=== PATIENT | female | born 1945 | race Caucasian/White ===

== ENCOUNTER 2019-10-06 06:03 | Inpatient (IN) | payer OTHER, SELFPAY ==
[2019-09-23 13:46] VITALS: BMI 26.0
[2019-10-06] VITALS (24 sets, daily range): BP systolic 111–168; BP diastolic 56–96; PULSE 68–95; RESP 8–18; TEMP 36.1–37.1; O2SAT 89–99; BMI 25.7
--- NOTE | 2019-10-06 | DI.RAD.S_ITS ---
PROCEDURE: XR CERVICAL SPINE 2V OR 3V INDICATIONS: ACDF TECHNIQUE: 2 view(s) of the cervical spine were acquired. COMPARISON: None. FINDINGS: Bones: No fractures or dislocations to the T1 level. Normal alignment has been established by anterior fusion plating from C3-C7, with interbody disc prosthesis placement at C3-4, C4-5, C5-6. At C6-C7-1 bone graft or disc prosthesis appears present. The lateral masses of C1 appear intact on the odontoid view. No suspicious bony lesions. Soft tissues: No prevertebral soft tissue swelling. IMPRESSION: Normal alignment established after anterior fusion plating and interbody disc prosthesis C3-C6/possible C6-C7 bone graft or disc prosthesis placement. Dictated by: Julio César Villalba M.D. on 10/06/2019 at 11:30 Approved by: Julio César Villalba M.D. on 10/06/2019 at 11:32
[2019-10-06] MEDS: CLINDAMYCIN 600 MG/50 ML PIGGYBACK 50 MG IV ×3 (07:55→23:59)
--- NOTE | 2019-10-06 08:06 | PM.PREOP ---
Pre-operative Note Interval Note History & Physical reviewed/Exam performed by Physician: Yes Changes to H&P: No
--- NOTE | 2019-10-06 08:33 | SUR.OPER ---
Supine, head on gel donut. Arms padded with gel pads, tucked at sides, towel roll under shoulders. Safety belt at thigh. Legs uncrossed.
--- NOTE | 2019-10-06 08:52 | SUR.OPER ---
GLASSES IN LABELED WEBB TO PACU WITH PATIENT.
[2019-10-06] MEDS: LACTATED RINGERS 1,000 ML 42 ML IV ×2 (11:01→13:15)
--- NOTE | 2019-10-06 11:03 | P.OP_ITS ---
Operative Date/Time/Diagnoses Date of procedure: 10/06/19 Time of procedure: 07:54 Pre-op diagnosis: 1. C3-4, C4-5, C5-6, C6-7 spondylolisthesis 2. C3-4, C4-5, C5-6, C6-7 spinal stenosis Post-op diagnosis: same Procedure & Clinicians Procedure: 1. C3-4 C4-5 C5-6 C6-7 anterior cervical diskectomy and fusion 2. C3-4 C4-5 C5-6 anterior interbody cage placement 3. C6-7 structural allograft placement 4. C3-4 C4-5 C5-6 C6-7 anterior instrumentation with plate and screw placement in C3-C4-C5-C6 and C7 vertebrae 5. Utilization of microsurgical technique and operating microscope Same procedure as scheduled: Yes Indications: Patient has been having chronic neck pain and worsening cervical radiculopathy. Patient failed multiple conservative management with worsening pain weakness and numbness in her upper extremity. Patient has been having difficulty performing activity of daily living. After discussing risks benefits of treatment options, patient elected proceed with surgery. Surgeon: Kinsey Gudino School Bus Driver: Komal Quarles Click Yes if Unassisted: No Anesthesia Type: General Operative Notes Closure Type: primary Specimen(s): none sent Prosthetic devices, grafts, tissues, transplants, or devices: Globus extend plate, PEEK cage, structural allograft Applied: catheter Estimated Blood Loss (mL): 50 Blood products transfused: none Procedure in detail: Using lateral C-arm imaging, the level between C3 and C7 was identified and marked on patient's neck. A oblique incision from midline towards medial border of sternocleidomastoid muscle was made. The platysma muscle was incised in line with skin incision. Metzenbaum scissor was used to develop the plane between the medial border of sternocleidomastoid d and the strap muscles medially. The carotid sheath and its contents were identified and protected behind the hand-held retractor during the entire case. The plane between the carotid sheath and strap muscles was developed with Metzenbaum scissors. Dissection was made down to the level of the anterior cervical fascia. Longus colli muscle was incised on the anterior aspect of vertebral bodies bilaterally from C3-C7. Spinal needle was placed into the C4-5 disc space and confirmed with lateral C-arm imaging. Using microsurgical technique and operative microscope, anterior cervical diskectomy was performed at C3-4 C4-5 C5-6 and C6-7 level. This was done by removing the disc material, removing the anterior and posterior osteophytes posterior longitudinal ligaments along with performing bilateral foraminotomies at all 4 levels. Patient was found to have severe central and foraminal stenosis at all 4 levels. Patient's stenosis was fully decompressed after decompression was completed. After the diskectomy was completed, 3 anterior interbody cages were obtained. The cages were packed with DBM bone grafting material. One cage each along with the bone grafting material was then packed into the interbody spaces from C3-C6 with 1 cage into each interbody level. A structural allograft was obtained and placed into the C6-7 interbody space in order to accomplish anterior interbody fusion at C6-7 level. After the cages and allograft were placed, the anterior cervical plate was stabilized to the C3-C7 vertebrae using 2 screws at each each level. Total 10 screws were placed. After confirming placement of the hardware with AP and lateral C-arm imaging, the screws were locked into the plate using the locking mechanism and torque limiting screwdriver. After the hardware was placed and confirmed with AP and lateral C-arm imaging, the wound was irrigated with sterile normal saline. The platysma muscle and the subcutaneous tissue was closed with 2-0 Vicryl. The skin was closed with 4-0 Monocryl and Steri-Strips. Patient tolerated the procedure well. Patient was transferred recovery room in stable condition. There were no complications. Complications: none Post-operative Condition: stable Disposition: PACU Plan for aftercare: Admit to inpatient hospital
[2019-10-06] MEDS: fentaNYL 100 MCG/2 ML INJ IV ×3 (11:37→12:19)
[2019-10-06] MEDS: LORazepam 2 MG/ML INJ 0.25 MG IV ×2 (11:43→12:03)
[2019-10-06] MEDS: hydrOXYzine 50 MG/ML INJ 25 MG IM (13:21)
[2019-10-06] MEDS: ACETAMINOPHEN IV 1,000 MG/100 ML VIAL 400 MG IV (13:24)
--- NOTE | 2019-10-06 14:00 | SUR.PHASEI ---
PT transferred to room 211 via bed with all belongings. Last vital signs stable and pt mostly sleeping and appears to be comfortable; see flowsheet documentation for details. WILLIAM Kilgore at bedside upon arrival to room 211; handoff report and assessment completed. WILLIAM Kilgore to assume care of pt at this time.
[2019-10-06] MEDS: SODIUM CHLORIDE 0.9% 1,000 ML 100 ML IV ×2 (14:17→22:57)
[2019-10-06] MEDS: HYDROMORPHONE 1 MG INJ 0.2 MG IV ×2 (14:25→16:36)
--- NOTE | 2019-10-06 15:26 | PC.NURSE ---
Post-op: Arrived to room 211 at 1400. Awake but drowsy, oriented X3. Dressing to anterior neck C/D/I, soft collar in place. Ice to posterior shoulders. Medicated with 0.2 mg IV Dilaudid by float RN for 8/10 pain- Patient resting quietly at reassessment and appears comfortable. VSS. Cont pulse ox in place, sats mid 90's on 2L. Anderson to gravity. SCD's to BLE's. IVF per orders, site in L hand WNL. Taking water and ice chips without N/V. [id number] at bedside and attentive. Oriented to room and call light, encouraged to make needs known. Call light in reach, bed alarm on.
--- NOTE | 2019-10-06 16:02 | PT-IP ANOTE ---
PT orders received and chart reviewed. Contacted pt for PT evaluation but pt was reporting 9/10 pain plus dificulty swallowing and requested to defer eval until the morning. Will follow up on 10/07/19.
[2019-10-06] MEDS: ALPRAZolam 0.5 MG TABLET PO (17:18)
[2019-10-06] MEDS: ALBUTEROL HFA 60 PUFF/8 GM INH INH (17:23)
[2019-10-06] MEDS: HYDROCODONE/ACET 5/325 TABLET 1 TAB PO ×2 (17:49→21:20)
--- NOTE | 2019-10-06 19:16 | CM.DANOTE ---
DCP brief Assessment:EMR reviewed: patient is a 74 yr old female who was admitted for multiple level cervical spine fusion surgery preformed by Dr. MAK. Patients PCP is Dr. Ley. CM/RN attempted to meet with patient at the bedside. Patient was groggy due to pain medication and was not able to participate in CM/RN visit. According to H&P patient has a post op appointment scheduled for 10/23/2019. PT and OT evaluations pending. Patient currently lives alone but has an in-home caregiver that will be present to help patient recover from surgery. d/c plan will need to be worked out when patient is able to participate in D/c planning. I: [employer] medicare and self pay. Plan: to be determined. 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 D/C plan needs to be worked out once PT/OT notes are placed and patients needs for recovery are determined. CM department will follow up with patient tomorrow 10/06/19 to determine d/c plan. Ernestina Duran RN. Discharge Planning/Care Management CM Discharge Assessment Start: 10/06/19 19:14 Freq: Status: Active Protocol: Document 10/06/19 19:14 HS (Rec: 10/06/19 19:16 HS [id number]) Discharge Planning Assessment Assigned Laser Engineer Ernestina Duran RN DPOA/Assigned Designee Name Magalys duarte (daughter) Contact Information [phone] Advance Directives? Yes Advance Directives on File No History Provided By Patient,Family Member Has Patient been admitted in last 30 No days? Prior Living Arrangements Apartment/Condo Household Members none Independent with ADL's Yes Is patient alert and oriented? Yes Caregiver for Another No Whiteboard Updated in Patient Room with Yes name and ext. # of Laser Engineer Review Status In Process Next Review Type Continued Stay Review Pre-Anesthesia Assessment Start: 09/23/19 13:46 Freq: Status: Active Protocol: Document 09/23/19 13:46 CAB (Rec: 09/23/19 14:53 CAB [id number]) Pre-Anesthesia Assessment Patient Information Reviewed Via Phone Assessment Assessment Completed With Patient Comment Pt states completed, surgeon has it, all ok, not available time of assess Primary Care Provider Lani Ley Seen Specialist in Last 12 Months Yes Specialist Seen Orthopedist Primary Language Serbian [employer] Window Clerk Required No Height 154.94 cm Weight 62.596 kg Body Mass Index (BMI) 26.0 Hearing Ability Normal Visual Assist Glasses Dentition Type Teeth, Natural Present Barriers to Learning None Hx Anesthesia Reactions Yes: Metabilizes numbing medication quickly Hx Family Anesthesia Reaction No Hx Malignant Hyperthermia No Hx Blood Transfusions No Anesthesia Review Requested No alcohol intake former Smoking Status Former smoker Tobacco type cigarettes how long ago did patient quit smoking Quit 1993 Substance Use Type does not use Pain Present Pain Reported Musculoskeletal Symptoms Abnormal Gait,Difficulty Walking,Joint Pain,Limited Range of Motion,Neck Pain, Numbness,Radiating Pain into Limb,Tingling History of Falling (Recent or History of No ) Patient is completely paralyzed or No completely immobile Mental Status Oriented to own ability Is patient on oxygen? No Does patient have PARR/SOB Yes: r/t Asthma Hx Sleep Apnea No Currently Taking a Beta [place] No Can You Climb a Flight of Stairs Without No SOB Hx Chest Pain No Hx SOB Yes: r/t Asthma Hx Syncope or Dizziness No Anti-Coagulant Therapy No Has a Top Closer No Cardiac Testing No Hx Pacemaker/ICD No Pacemaker Rep Required? No Comment Walks her dogs twice a day Diet Type At Home Regular dysphagia No Comment Hx of fecal incontinence Bladder Pattern Incontinent Urinary Catheter Present No Hx Urinary Self Catheterization No Comment Pt reports numb, I have no idea when I'm going Diabetes No Patient No Lactating No Hx Drug Resistant Organism No Presence of External or Internal Medical Yes: Bilat eye lens Devices Have you traveled outside the [facility] in the last 30 days? Comment Sharri travel 09/08- Marital Status 07/24/19 Lives With none Prior Living Arrangements Apartment/Condo Number of Floors (Floors) One Floor Support System Caregiver,Family Does the Patient Have Assistance After Yes: In-home care Surgery Patient Discharge Plan Description Return Home Comment Pt advised 2 day length of stay per surgeon office Feels Safe in Current Environment Yes Been Physically Hurt or Threatened By a No Person in Current Environment Do you have thoughts of harming yourself None or others? Are you currently considering suicide? No Do you have a plan to hurt yourself or No Plan others? Do You Have Any Spiritual Beliefs That No May Affect Your HC Choices? Do You Have Any Cultural Practices That No May Affect Your HC Choices? Who Can We Speak to About Patient's Care Family, friends Identifying Code for Release of Patient Declines to issue Information Health Care Proxy/Next of Kin Isidro (son) Christopher (son) Sari(Christopher's ) Health Care Proxy Phone Number Isidro:[phone]-Christopher: will update dos Sari(Christopher's ) Emergency Contact Name Isidro (son) Christopher (son) Sari(Christopher's ) Emergency Contact Phone Number sIidro:[phone]-Christopher: will update dos Sari(Christopher's ) Advance Directives? Yes Advance Directives on File No Requested Patient Bring Advanced Yes Directives DOS Power of Regulatory Internship No PAC Instructions Medications to take/avoid, Nasal antibiotic,No ETOH/ petroleum product on skin DOS, NPO,Post-op transportation,Pre -op antibiotic,Sturdy shoes/ comfortable clothes,Do not bring valuables and remove jewelry
[2019-10-06] MEDS: FLUTICASONE/SALMETEROL 250/50 60 PUFF DISKUS INH (19:46)
[2019-10-06] MEDS: DOCUSATE 100 MG CAPSULE PO (21:00)
--- NOTE | 2019-10-06 22:43 | PC.NURSE ---
Evening note: Frances is Ox3, VS have been stable tonight, 2L O2 sats 98-99%, weaned to 1L O2 with sats remaining the same. Patient reports difficulty swallowing anything other than sorbet or yogurt, no coughing or choking observed, but she states she 'feels like there is a lump in my throat.' She told me It is making me feel claustrophobic, requested her inhaler. At that point I medicated her with Xanax as she told me she was very anxious about her throat, asking is this normal? Words of comfort/support offered, post-op teaching reinforced. She told me she had no idea my throat would feel like this. After stool softener administered, she stated she didn't think it went down all the way. I then held Senna. Bites of yogurt given. No distress observed. Anterior neck drsg is CDI, cervical collar in place to protect neck. Logrolling instructed. Side lying right, then to back, now lying on left side. Ice pack to back of neck. At 1st assessment she rated pain 8 and given IV Dilaudid 0.2 mg as she had still not had much PO intake. She earlier had friend feeding her bites of pudding/sorbet, refused anything more substantial for dinner. Since then has eaten 3 sorbet cups and 1 yogurt. She also was reluctant to move, asking staff to feed her ice chips/bites of food. Post-op teaching explained, I encouraged/instructed her that movement post-surgery was important, and to call staff for help turning [id number]. She did state that after lying on right side her shoulder was sore. We sat her up in bed at 2100 and encouraged mvmt & PO intake. She refused to get OOB or to recliner. At that time she stated neck pain increasing 6 or 7, medicated with 1 tab Hydrocodone crushed in yogurt, and she has been dozing quietly since. Encouraged her to call staff for assistance, call button at her side. Anderson patent with clear yellow urine, IVF infusing with no difficulty. Fall precautions in place & bed alarm is active.
[2019-10-07] VITALS (7 sets, daily range): BP systolic 128–155; BP diastolic 62–88; PULSE 72–90; RESP 15–18; TEMP 36.5–37.2; O2SAT 90–97
[2019-10-07] MEDS: HYDROCODONE/ACET 5/325 TABLET 1 TAB PO ×6 (01:35→22:39)
[2019-10-07] MEDS: LEVOTHYROXINE 75 MCG TABLET PO (05:47)
--- NOTE | 2019-10-07 06:08 | PC.NURSE ---
Pt stating this morning that she doesn't think the norco is managing her pain well enough. She did state to me that she has a pretty low pain tolerance as well. Pt seems reluctant to move in the bed at all; not able to turn herself or move her legs much, she doesn't use her arms to give herself any water or apple sauce either. When i spoke to the pt about the need to get up and move during the day especially with PT the patient was gasped and said she couldn't imagine walking around today. Anderson patent with clear yellow urine. Foot SCDs on throughout night. NS@100cc/hr Tolerating room air. Pt often saying she feels like she can't breathe. Oxygen is 98% on RA, no accessory muscle use. Pt is very anxious.
--- NOTE | 2019-10-07 07:45 | PM.PNPO.1 ---
Subjective Subjective Date Patient Seen: 10/07/19 Time Patient Seen: 07:45 Interval history: POD 1 s/p multiple level ACDF with Dr. Gudino. Patient complains of moderate - severe pain overnight, being treated with norco and dilaudid IV. Patient has not ambulated out of bed or mobilized with PT. Staff notes patient refuses to ambulate secondary to pain, but patient states no one told her she needed to move. I discussed with her that she needs to start moving today and patient was agreeable. Urinary catheter in place. Denies fever, chills, chest pain, shortness of breath, calf pain, nausea, vomiting. Exam Vital Signs (past 8 hours): - 10/07/19 03:00 Temperature 98.2 F Pulse Rate 87 Respiratory Rate 18 Blood Pressure 128/62 Pulse Oximetry 97 Oxygen Delivery Method Nasal Cannula Oxygen Flow Rate 0 Narrative Exam Narrative: 74 year old female is laying comfortably in bed, in no apparent distress. A&Ox3. Dressing CDI on neck, collar is on, urinary catheter in place. Sensory function grossly intact to light touch in LE bl. Capillary refill <2sec LE bl. Dorsalis Pedis 2+ b/l. Able to actively dorsiflex/plantar flex. Calves warm, soft, compressible, nttp. Assessment & Plan Post-op Postoperative Procedures: Procedures Operation Date: 10/06/19 07:45 Actual Procedures Side Surgeon p C3-4, C4-5, C5-6, C6-7 ACDF w/ anterior instrumentation Not Applicable Kinsey Gudino MD Postoperative status: doing well and marginal pain control Postoperative plan: routine post-op care, ambulate and voiding trials Postoperative plan narrative: Pain control - schedule tylenol, patient needs to ambulate, will reassess pain after ambulation/PT Mobilize with PT Remove catheter - trial of void Continue SCDs
[2019-10-07] MEDS: FLUTICASONE/SALMETEROL 250/50 60 PUFF DISKUS INH (08:45)
[2019-10-07] MEDS: CITALOPRAM 10 MG TABLET PO (09:06)
[2019-10-07] MEDS: DOCUSATE 100 MG CAPSULE PO ×2 (09:07→22:39)
[2019-10-07] MEDS: ESTRADIOL 1 MG TABLET PO (09:07)
[2019-10-07] MEDS: VERAPAMIL SR 240 MG TABLET PO (09:08)
[2019-10-07] MEDS: TRIAMTERENE/HCTZ 37.5/25 TABLET 1 CAP PO (09:08)
[2019-10-07] MEDS: ACETAMINOPHEN 325 MG TABLET 650 MG PO ×2 (09:53→18:53)
--- NOTE | 2019-10-07 10:29 | PC.NURSE ---
Addendum entered by Karen Myles R.N. 10/07/19 12:03: Pt up with physical therapy and did well. She is visiting with her family and pain medication seems to be working for patient. Original Note: Assess- Pt is A&Ox3, she is emotional and has been hesitant to do anything. She has use of her hands and legs but was having staff feed her dinner last evening. Her just in July and she is emotional. Explained to patient that she does need to get out of bed, so that she does not develop pneumonia, and she does have a montero catheter that needs to come out so she will have to be getting up to void. Just given 1 vicodin and 2 tylenol for complaints of pain 03/26. Daughter in law asked if patient could have xanax at this time, explained to her that we just gave patient some Narcotics, so we need to wait for a bit. She was understanding of this. Dressing to anterior neck is cdi, and pt has a soft collar on.
--- NOTE | 2019-10-07 11:17 | PT.IIE ---
Current Diagnoses Spondylolisthesis, cervical region (10/06/19) Other spondylosis with radiculopathy, cervical region (10/06/19) Spinal stenosis, cervical region (10/06/19) Surgery Performed Operation Date: 10/06/19 07:45 Actual Procedures p C3-4, C4-5, C5-6, C6-7 ACDF w/ anterior instrumentation(Not Applicable) - Kinsey Gudino MD Surgical History (Last Updated 09/23/19 @ 14:21 by Sara Hernandez RN) History of bladder suspension procedure (Acute) History of partial hysterectomy (Acute) Hx of appendectomy (Acute) Hx of bilateral cataract extraction (Acute) Hx of cholecystectomy (Acute) Hx of tonsillectomy (Acute) Hx of tubal ligation (Acute) Medical History (Last Updated 10/06/19 @ 07:24 by Larisa Sotelo RN) Anxiety (Acute) Arthritis (Acute) Asthma (Acute) COPD (chronic obstructive pulmonary disease) (Acute) Depression (Acute) Easy bruisability (Acute) Foot fracture, right (Acute ~2011) Hammertoe of right foot (Acute ~2011) HTN (hypertension) (Acute) Hypothyroidism (Acute) Incontinence of urine (Acute) Numbness and tingling in left hand (Acute) Pneumonia (Acute) Prolapsed bladder (Acute) Uterine cancer (Acute) Physical Therapy Inpatient Evaluation/Re-Eval M1 PT/OT-IP Prior Functional Status Start: 10/06/19 14:38 Freq: NEEDED Status: Active Protocol: Document 10/07/19 11:17 AB (Rec: 10/07/19 12:19 AB [id number]) Medical Review Prior Functional Status Medical History Reviewed Yes Communication able to make needs known Mobility and Gait pt stated that she is modified independent with all mobilities and ambulation without AD but occasionally uses a SPC depending on knee pain Social History Household Members none Living Arrangements House Number of Floors (Floors) One Floor Number of Stairs To Enter/Railing? no steps to enter Home Environment Standard Height Toilet,Walk in Shower Home Equipment Four Wheel Walker,Straight Cane,Shower Seat without Backrest,Hand Held Shower,Grab Bars Near Toilet,Grab Bars In Shower Additional Social History Comment [id number] will stay with pt fo ~ 2 weeks to assist her M2 PT-IP Current Condition Start: 10/06/19 14:38 Freq: NEEDED Status: Active Protocol: Document 10/07/19 11:17 AB (Rec: 10/07/19 12:19 AB [id number]) Physical Therapy Current Condition Current Condition Evaluation Date 10/07/19 Treatment Diagnosis s/p C4-7 ACDF; difficulty in walking Onset Date 10/06/2019 Precautions Cervical Spine Precautions Soft Collar for Comfort,No Heavy Lifting,Log Roll M3 PT-IP Subjective Start: 10/06/19 14:38 Freq: NEEDED Status: Active Protocol: Document 10/07/19 11:17 AB (Rec: 10/07/19 12:19 AB [id number]) Subjective Physical Therapy Visit Type Type Initial Evaluation Visit Start Time 11:17 Visit Stop Time 11:54 Total Visit Minutes 37 Number of TRACK VEHICLE REPAIRER Visits 0 Physical Therapy Visit Comments Patient Comments checked on pt earlier this morning and c/o neck pain of 8 /10 and refusing PT; checked again 1117am and agreed to do PT; [id number] in room with pt Therapy Pain Assessment Pain When Pain Assessed At Rest Pain Present Pain Present Pain Reported Location neck Intensity 5 Scale Used Numeric (1 - 10) Pain Management Techniques Re-positioning,Timing of Activity with Medications M4 PT-IP Mobility and Gait Start: 10/06/19 14:38 Freq: NEEDED Status: Active Protocol: Document 10/07/19 11:17 AB (Rec: 10/07/19 12:19 AB [id number]) PT-Bed Mobility Assessment Rolling Type of Rolling Log Rolling Level of Assist Minimal Assistance Supine to Sit Supine to Sit Minimal Assistance,1 Person Assistance PT-Transfer Assessment Sit to and From Stand Sit to and from Stand Minimal Assistance,1 Person Assistance,Use of Upper Extremities Equipment Transfer Assistive Device Gait Belt,Front Wheeled Walker Orthotic/Prosthetic Devices or Brace: No Transfers Transfer Destination Bed Transfer Technique ambulated using FWW Transfer Ability Level of Assist Minimal Assistance,1 Person Assistance,Use of Upper Extremities Comments Mobility Comments BP: 144/78 Pt completed log rol supine to sit min A and cues. pt initially c/o lightheadedness but dissipated after a few seconds. completed sit to stand min A and cues. Ambulated in room ~ 25 ft using FWW min A and cues. sat on chair and rested . completed sit to stand from chair min A and cues and ambulated using FWW towards the sink ~ 8 ft min A and cues . educated pt and DIL on donning/doffing of cervical collar and both were able to manage collar. pt agreed to sit up on chair and ambulated to the chair using FWW min A and cues. positioned pt on chair. call light and table placed within reach. OT came in to see pt and left pt with OT. Gait Assessment Gait Gait Assistance Required: Minimum Assistance,1 Person Assist Distance (Feet) 25 Able to Maintain Weight Bearing Status Yes During Gait Assistive Devices Assistive Device Gait Belt,Front Wheeled Walker Orthotic/Prosthetic Devices or Brace: Yes Gait Deviations General Gait Pattern Antalgic,Decreased Stride Length,Decreased Feet Clearance,Step-to Gait Factors Limiting Gait Function Factors Limiting Gait Function Decreased Activity Tolerance, Decreased Strength,Limited Range of Motion,Pain,Poor Balance,Poor Safety Awareness Comments Gait Comments pls refer to mobility section for details PT-Balance Assessment Sitting Balance and Reactions Static Sitting Balance Ability Good Dynamic Sitting Balance Ability Good Standing Balance and Reactions Static Standing Balance Ability Fair Dynamic Standing Balance Ability Fair Device Used FWW M5 PT-IP Objective Assessments Start: 10/06/19 14:38 Freq: NEEDED Status: Active Protocol: Document 10/07/19 11:17 AB (Rec: 10/07/19 12:19 AB [id number]) Orientation Orientation/Cognition Level of Alertness Alert Orientation Name,Age,Birthday,Month,Date, Year,Day of Week,Place, Situation Language Function Ability No Deficits Noted Safety Awareness Decreased Safety Awareness Memory Description Short Term Impaired Gross Range of Motion Lower Extremity ROM Assessment Within Functional Limits Strength Lower Extremity Strength Assessment Within Functional Limits Coordination Assessment Gross Coordination Gross Coordination WNL Sensation Assessment Sensation Gross Sensation WNL Muscle Tone Muscle Tone WNL Yes M6 PT-IP Treatment Start: 10/06/19 14:38 Freq: NEEDED Status: Active Protocol: Document 10/07/19 11:17 AB (Rec: 10/07/19 12:19 AB [id number]) Physical Therapy Treatment Education Education Provided Precautions,Weight Bearing Status,Post-Op Packet,Safety M7 PT-IP Assessment and Plan Start: 10/06/19 14:38 Freq: NEEDED Status: Active Protocol: Document 10/07/19 11:17 AB (Rec: 10/07/19 12:19 AB [id number]) PT Summary Assessment and Plan Potential Rehabilitation Potential Good Status of Condition at Evaluation Evolving Summary Impairments Pain,ROM,Strength,Balance, Coordination,Sensation,Tone, Cognition,Bed Mobility, Transfers,Gait,Activity Tolerance Assessment Summary pt requiring min A with mobility and ambulation using FWW. pt plans to go home and her [id number] will assist her at home. will conduct caregiver training when appropriate. will continue to assess progress. Goals Bed Mobility Goal Independent Transfer Goal Independent,Front Wheeled Walker,Four Wheeled Walker Gait Goal Independent,Front Wheel Walker ,Four Wheel Walker Gait Distance 250 Other Goals improve ambulation using SPC SBA 200 ft Days to Meet Goals 5 Frequency of Treatment Frequency Of Treatment Twice a Day Treatment Plan Physical Therapy Treatment Plan Bed Mobility Training,Transfer Training,Gait Training, Therapeutic Exercise,Balance Retraining,Post Op Education, Discharge Planning,Hot or Cold Pack,Neuromuscular Re-ed, Coordination Retraining,Manual Therapy Recommendations To Nursing Amount of Assist Needed 1 Person Assist Discharge Recommendations PT Discharge Recommendations Home with Assistance
--- NOTE | 2019-10-07 12:16 | ST.IPSCREEN ---
Patient screened per ACDF protocol. Patient reports having difficulty swallowing solids. Verbal education provided regarding ordering liquids and soft/puree solids only and advancing diet as tolerated. Recommend patient follow-up with her doctor if swallowing problems persist or worsen over the next two weeks.
--- NOTE | 2019-10-07 12:28 | OT.IP.EVAL ---
Current Diagnoses Spondylolisthesis, cervical region (10/06/19) Other spondylosis with radiculopathy, cervical region (10/06/19) Spinal stenosis, cervical region (10/06/19) Surgery Performed Operation Date: 10/06/19 07:45 Actual Procedures p C3-4, C4-5, C5-6, C6-7 ACDF w/ anterior instrumentation(Not Applicable) - Kinsey Gudino MD Past Medical History (Last Updated 10/06/19 @ 07:24 by Larisa Sotelo RN) Anxiety (Acute) Arthritis (Acute) Asthma (Acute) COPD (chronic obstructive pulmonary disease) (Acute) Depression (Acute) Easy bruisability (Acute) Foot fracture, right (Acute ~2011) Hammertoe of right foot (Acute ~2011) HTN (hypertension) (Acute) Hypothyroidism (Acute) Incontinence of urine (Acute) Numbness and tingling in left hand (Acute) Pneumonia (Acute) Prolapsed bladder (Acute) Uterine cancer (Acute) Surgical History (Last Updated 09/23/19 @ 14:21 by Sara Hernandez RN) History of bladder suspension procedure (Acute) History of partial hysterectomy (Acute) Hx of appendectomy (Acute) Hx of bilateral cataract extraction (Acute) Hx of cholecystectomy (Acute) Hx of tonsillectomy (Acute) Hx of tubal ligation (Acute) Occupational Therapy Inpatient Evaluation/Re-Eval M1 PT/OT-IP Prior Functional Status Start: 10/06/19 14:38 Freq: NEEDED Status: Active Protocol: Document 10/07/19 12:28 NYLA (Rec: 10/07/19 16:28 NYLA [id number]) Medical Review Prior Functional Status Medical History Reviewed Yes Diet/Fluid Consistency Regular Communication WNL Mobility and Gait Pt states that she is independent with ambulation without AD but occasionally uses a SPC depending on knee pain. Activities of Daily Living and IADL's Pt states she is normally independent with all self care , IADLS, drives. Prior Functional Level (Other details) Pt has no local family. Daughter in law here today and will stay with pt for 2 weeks after d/c. Social History Household Members none Living Arrangements House Number of Floors (Floors) One Floor Number of Stairs To Enter/Railing? no steps to enter Home Environment Standard Height Toilet,Walk in Shower Home Equipment Four Wheel Walker,Straight Cane,Shower Seat without Backrest,Hand Held Shower,Long Handled Shoe Horn,Grab Bars Near Toilet,Grab Bars In Shower Employment Status Retired Additional Social History Comment Pt has 2 small dogs, neighbors to assist with walking them after DIL leaves. M2 OT-IP Current Condition Start: 10/07/19 16:12 Freq: Status: Active Protocol: Document 10/07/19 12:28 PJM (Rec: 10/07/19 16:28 PJ [id number]) Occupational Therapy Current Condition Current Condition Evaluation Date 10/07/19 Treatment Diagnosis decreased self care, functional mobility s/p C3-7 ACDF Diagnosis Onset Date 10/06/19 Post Operative Precautions Cervical Spine Precautions Soft Collar for Comfort,No Heavy Lifting,Log Roll M3 OT- IP Subjective and Pain Start: 10/07/19 16:12 Freq: Status: Active Protocol: Document 10/07/19 12:28 PJM (Rec: 10/07/19 16:28 PJ [id number]) OT- Subjective Occupational Therapy Visit Type Type Initial Evaluation Visit Start Time 11:54 Visit Stop Time 12:28 Total Visit Minutes 34 Notes Pt's DIL here for education this session Occupational Therapy Visit Comments Patient Comments I didn't think it was going to be this bad. Patient/Caregiver Goals to be able to swallow more easily and return to indep living at home OT Pain Assessment Pain When Pain Assessed After Treatment Pain Present Pain Present Pain Reported Location neck Intensity 6 Scale Used Numeric (1 - 10) Description Aching,Acute,Tightness Pain Behaviors Guarding Management Techniques Distraction,Re-positioning, Timing of Activity with Medications M4 OT- IP ADL's Start: 10/07/19 16:12 Freq: Status: Active Protocol: Document 10/07/19 12:28 PJM (Rec: 10/07/19 16:28 PJ [id number]) OT [id number] General Evaluation Self-Feeding Ability Independent OT ADL-Grooming General Evaluation Grooming Ability Standby Assistance Areas Needing Assistance Retrieving/Set-up of Grooming Items,Face Washing Comments OT Grooming Comments seated in chair OT ADL-Oral Care Comments Oral Care Comments pt declined this session; provided education re: body mechanics and use of spit basin OT ADL-Dressing Comments OT Dressing Comments began education re: precautions and lower body dressing techniques; provided search manager; pt may need sock aid- will assess tomorrow OT ADL-Toileting General Evaluation Toileting Ability Total Assistance Areas Needing Assistance Empty Catheter or Colostomy Comments OT Toileting Comments montero in place OT ADL-Bathing Comments OT Bathing Comments to be assessed as activity tolerance improves; provided education re: methods to keep cervical incision dry M5 OT- IP IADL's Start: 10/07/19 16:12 Freq: Status: Active Protocol: Document 10/07/19 12:28 PJM (Rec: 10/07/19 16:28 PJ [id number]) OT-Instrumental Activities of Daily Living Deficits IADL Deficits Identified Deficits Home Safety Awareness Awareness of Need for Assistance at Home Good Awareness Ability to Problem Solve Emergency Able to Problem Solve Situations Medication Management Medication Management No Deficits Identified Money Management Money Management No Deficits Identified Meal Preparation Meal Preparation Caregiver Provides Assist Meal Preparation Comments DIL to assist for 2 weeks, then friends can also assist per pt Property Management Intern Property Management Intern Caregiver Provides Assist Property Management Intern Comments DIL to assist for 2 weeks, then friends can also assist per pt Driving Driving Caregiver Provides Assist Driving Comments DIL to assist for 2 weeks, then friends can also assist per pt M6 OT- IP Functional Cognition Start: 10/07/19 16:12 Freq: Status: Active Protocol: Document 10/07/19 12:28 PJM (Rec: 10/07/19 16:28 [facility] [id number]) Cognitive Factors Limiting Selfcare Function Cognitive Ability Level of Alertness Alert Patient Orientation Name,Age,Birthday,Month,Date, Year,Day of Week,Place, Situation Attention Span Ability Capable of Focused Attention, Capable of Sustained Attention Ability to Follow Commands Able to Follow One Step Commands Memory Description No Deficits Noted Safety Awareness No Deficits Noted Problem Solving Ability Needs Assist to Identify Solutions OT- Vision and Hearing OT- Hearing Assessment OT- Hearing Assessment WFL OT- Vision Assessment Visual Acuity WFL M7 OT- IP Mobility and Balance Start: 10/07/19 16:12 Freq: Status: Active Protocol: Document 10/07/19 12:28 PJM (Rec: 10/07/19 16:28 [facility] [id number]) OT-Transfer Assessment Comments Mobility Comments pt seen up in chair this session, see P.T. notes OT- Gait Assessment Comments Gait Ability Comments see P.T. notes OT- Balance Assessment Comments Other Balance Tests/Deviations/Treatment see P.T. notes : M8 OT- IP Objective Assessments Start: 10/07/19 16:12 Freq: Status: Active Protocol: Document 10/07/19 12:28 PJM (Rec: 10/07/19 16:28 PJM [id number]) OT Gross Range of Motion Upper Extremity Range of Motion Assessment Within Functional Limits ROM Impairments within C spine precautions OT Strength Comments Strength Comments WFL for self care, not formally tested OT- Coordination Assessment Comments Coordination Comments WFL OT-Muscle Tone Assessment Muscle Tone WNL Yes OT Sensation Assessment Edema Edema Comments pt states she feels like she has lump in throat M9 OT- IP Assessment and Plan Start: 10/07/19 16:12 Freq: Status: Active Protocol: Document 10/07/19 12:28 PJM (Rec: 10/07/19 16:28 PJM [id number]) OT Summary Assessment and Plan Potential Rehabilitation Potential Good Analytic Complexity at Evaluation Low Summary OT Impairments Pain,Balance,Functional Mobility,Grooming,Dressing, Toileting,Bathing,Toilet Transfers,Shower Transfers Assessment Summary Low complexity OT assessment completed on this 74 yr old woamn admitted for elective C3-7 ACDF. Pt normally lives alone and is completely independent in all self care, IADLS, and driving. Pt presents today with significant performance deficits in mobility and self care due to post op pain. Began education with pt and her daughter in law re: C spine precautions and adapted ADL techniques as described above. Plan 1 additional OT visit to address goals below. Anticipate pt will d/c home with 24 hour assist from DIL x 2 weeks when medically stable and clears P.T. Goals Grooming Goal Independent Dressing Goal Standby Assistance Toileting Goal Independent Bathing Goal Minimal Assistance Toilet Transfer Goal Standby Assistance Shower Transfer Goal Contact Guard Assistance Patient/Caregiver Education Goal Demonstrate Post-Op Precautions,Demonstrate Energy Conservation and Pacing, Caregiver Independent Assisting Patient OT-Other Goals Grooming to be done standing at sink with good body mechanics and safety awareness . Days to Meet Goals 1 Frequency of Treatment Frequency Of Treatment Once a Day Treatment Plan OT Treatment Plan ADL Training,Functional Mobility,Patient/Family Education,Discharge Planning Discharge Recommendations OT Discharge Recommendations Home with 24/7 Assist
--- NOTE | 2019-10-07 15:23 | PT.IPTN ---
Current Diagnoses Spondylolisthesis, cervical region (10/06/19) Other spondylosis with radiculopathy, cervical region (10/06/19) Spinal stenosis, cervical region (10/06/19) Surgery Performed Operation Date: 10/06/19 07:45 Actual Procedures p C3-4, C4-5, C5-6, C6-7 ACDF w/ anterior instrumentation(Not Applicable) - Kinsey Gudino MD Physical Therapy Treatment Note M2 PT-IP Current Condition Start: 10/06/19 14:38 Freq: NEEDED Status: Active Protocol: Document 10/07/19 11:17 AB (Rec: 10/07/19 12:19 AB [id number]) Physical Therapy Current Condition Current Condition Evaluation Date 10/07/19 Treatment Diagnosis s/p C4-7 ACDF; difficulty in walking Onset Date 10/06/2019 Precautions Cervical Spine Precautions Soft Collar for Comfort,No Heavy Lifting,Log Roll M3 PT-IP Subjective Start: 10/06/19 14:38 Freq: NEEDED Status: Active Protocol: Document 10/07/19 15:23 CLB (Rec: 10/07/19 16:06 CLB [id number]) Subjective Physical Therapy Visit Type Type Treatment Note Visit Start Time 15:23 Visit Stop Time 15:46 Total Visit Minutes 23 Notes [id number] Sari present for CG training. Number of INTERNAL CONTROL CONSULTANT Visits 1 Physical Therapy Visit Comments Patient Comments Pt agreeable to do therapy. Pt stated it was easier to breath when she is up walking. Therapy Pain Assessment Pain When Pain Assessed At Rest Pain Present Pain Present Pain Reported Location neck Intensity 7 Scale Used Numeric (1 - 10) Pain Management Techniques Re-positioning,Timing of Activity with Medications M4 PT-IP Mobility and Gait Start: 10/06/19 14:38 Freq: NEEDED Status: Active Protocol: Document 10/07/19 15:23 CLB (Rec: 10/07/19 16:06 CLB [id number]) PT-Bed Mobility Assessment Rolling Type of Rolling Log Rolling Level of Assist Contact Guard Assistance Supine to Sit Supine to Sit Contact Guard Assistance,1 Person Assistance Sit to Supine Sit to Supine Contact Guard Assistance,1 Person Assistance Scooting Scooting to Edge of Bed Standby Assistance PT-Transfer Assessment Sit to and From Stand Sit to and from Stand Contact Guard Assistance,1 Person Assistance,Use of Upper Extremities Equipment Transfer Assistive Device Gait Belt,4 Wheeled Walker Orthotic/Prosthetic Devices or Brace: Yes Transfers Transfer Destination Bed,Chair Transfer Technique ambulated using FWW Transfer Ability Level of Assist Contact Guard Assistance,1 Person Assistance,Use of Upper Extremities Comments Mobility Comments Pt is CGA for log roll in and out of bed with therapist hand placed on pt's back to control log roll into bed. Pt was able to get legs in and out of bed but required cues to get legs off the bed before pushing with her elbow and hand to sit up. Pt recalled needing to lock brakes on 4WW before standing and sitting. Sari was able to assist pt with log roll, sit<>stand and gait to chair from left side of bed. Sari gave pt appropriate cues for hand placement but will need further training to assist pt with log roll. Gait Assessment Gait Gait Assistance Required: Contact Guard Assist,1 Person Assist Distance (Feet) 200 Able to Maintain Weight Bearing Status Yes During Gait Assistive Devices Assistive Device Gait Belt,4 Wheeled Walker Orthotic/Prosthetic Devices or Brace: Yes Gait Deviations General Gait Pattern Antalgic,Decreased Stride Length,Decreased Feet Clearance,Step-to Gait Factors Limiting Gait Function Factors Limiting Gait Function Decreased Activity Tolerance, Decreased Strength,Limited Range of Motion,Pain,Poor Balance,Poor Safety Awareness Comments Gait Comments Pt able to use 4WW to ambulate in room ~200ft CGA. Pt with increased steadiness and was able to manage the 4WW appropriately. Stair Climbing Assessment Comments Stair Climbing Comments no stairs M5 PT-IP Objective Assessments Start: 10/06/19 14:38 Freq: NEEDED Status: Active Protocol: Document 10/07/19 11:17 AB (Rec: 10/07/19 12:19 AB [id number]) Orientation Orientation/Cognition Level of Alertness Alert Orientation Name,Age,Birthday,Month,Date, Year,Day of Week,Place, Situation Language Function Ability No Deficits Noted Safety Awareness Decreased Safety Awareness Memory Description Short Term Impaired Gross Range of Motion Lower Extremity ROM Assessment Within Functional Limits Strength Lower Extremity Strength Assessment Within Functional Limits Coordination Assessment Gross Coordination Gross Coordination WNL Sensation Assessment Sensation Gross Sensation WNL Muscle Tone Muscle Tone WNL Yes M6 PT-IP Treatment Start: 10/06/19 14:38 Freq: NEEDED Status: Active Protocol: Document 10/07/19 11:17 AB (Rec: 10/07/19 12:19 AB [id number]) Physical Therapy Treatment Education Education Provided Precautions,Weight Bearing Status,Post-Op Packet,Safety M7 PT-IP Assessment and Plan Start: 10/06/19 14:38 Freq: NEEDED Status: Active Protocol: Document 10/07/19 15:23 CLB (Rec: 10/07/19 16:06 CLB [id number]) PT Summary Assessment and Plan Summary Impairments Pain,ROM,Strength,Balance, Coordination,Sensation,Tone, Cognition,Bed Mobility, Transfers,Gait,Activity Tolerance Assessment Summary Pt improving with all mobility , pt states she feels a little foggy and requires cues for hand placement and sequencing log roll for safety. Pt's [id number] Sari was able to assist pt with log roll, sit<>stand, and gait giving pt appropriate cues for safety. Further CG training needed to solitify the sequencing for safe log roll. Pt progressing and seems like she will be safe to d/c home with daughter -in-law's assistance when medically stable. Goals Bed Mobility Goal Independent Transfer Goal Independent,Front Wheeled Walker,Four Wheeled Walker Gait Goal Independent,Front Wheel Walker ,Four Wheel Walker Gait Distance 250 Other Goals improve ambulation using SPC SBA 200 ft Days to Meet Goals 5 Frequency of Treatment Frequency Of Treatment Twice a Day Treatment Plan Physical Therapy Treatment Plan Bed Mobility Training,Transfer Training,Gait Training, Therapeutic Exercise,Balance Retraining,Post Op Education, Discharge Planning,Hot or Cold Pack,Neuromuscular Re-ed, Coordination Retraining,Manual Therapy Other Recommendations and Next Treatment continue CG training, ambulate Focus , bed mobility. Recommendations To Nursing Amount of Assist Needed 1 Person Assist Discharge Recommendations PT Discharge Recommendations Home with Assistance
[2019-10-07] MEDS: HYDROMORPHONE 1 MG INJ 0.2 MG IV (17:14)
--- NOTE | 2019-10-07 19:13 | PC.NURSE ---
Addendum entered by Luana Sharma R.N. 10/07/19 22:56: Pt requesting to hold stool softeners until pain med due. Woken up now, she rates pain 6 or 7, saying my neck really hurts. After sitting up in bed she said my heart feels like it is pounding--will you listen to it? HRR, rate 84 bpm, RA oxygen 94% Encouraged slow deep breaths. When I asked her if she felt anxious, and if she would like xanax tonight, she said yes probably. Medicated with one tab hydrocodone crushed in applesauce per her request. Able to take other PO meds whole with sips of water. Reported uncomfortable in bed, I asked if she would like to transfer to recliner, she refused. I encouraged mvmt in bed, leg mvmt, etc, still refusing her SCD's. Assisted her to reposition in bed to left side, logrolling technique reinforced. Original Note: Evening note: Frances resting in bed on left side sleeping until 1720, when I brought in meal tray she reported increased discomfort to neck and my whole back is achy--what will help that? I encouraged mvmt and offered her warm blanket against her back. She refused to move, refused warm blanket. Requesting pain medication. Medicated with Dilaudid 0.2 mg IV as was too early to give PO Hydrocodone. After patient medicated I instructed her to call nurse/CAR [employer]PER when pain level less, so we could help her transfer to recliner to eat her dinner, movement encouraged as she is reluctant to move. Refused SCD's saying they will keep me awake. Instructed toe/foot/leg mvmt while in bed, we talked about DVT prevention post-surgery. About 20 minutes later patient called CAR DR[employer]PER and patient transferred to recliner to eat her dinner. Sat up for approx 30 minutes then requested to go back to bed. Pt's [id number] in room, and very attentive to Frances's needs. Fall precautions in place, alarm active for safety.
[2019-10-07] MEDS: SENNOSIDES 8.6 MG TABLET 17.2 MG PO (22:39)
[2019-10-08] MEDS: HYDROCODONE/ACET 5/325 TABLET 1 TAB PO ×2 (03:26→08:18)
[2019-10-08] MEDS: ACETAMINOPHEN 325 MG TABLET 650 MG PO ×2 (03:30→13:04)
[2019-10-08 05:07] VITALS: BP 164/78; PULSE 72; RESP 16; TEMP 36.9; O2SAT 92
[2019-10-08] MEDS: LEVOTHYROXINE 75 MCG TABLET PO (06:33)
[2019-10-08 07:50] VITALS: BP 152/78; PULSE 72; RESP 16; TEMP 36.8; O2SAT 94
[2019-10-08] MEDS: CITALOPRAM 10 MG TABLET PO (08:18)
[2019-10-08] MEDS: DOCUSATE 100 MG CAPSULE PO (08:18)
[2019-10-08] MEDS: VERAPAMIL SR 240 MG TABLET PO (08:18)
[2019-10-08] MEDS: TRIAMTERENE/HCTZ 37.5/25 TABLET 1 CAP PO (08:18)
[2019-10-08] MEDS: ESTRADIOL 1 MG TABLET PO (08:18)
[2019-10-08 08:43] VITALS: PULSE 75; RESP 14; O2SAT 94
[2019-10-08] MEDS: FLUTICASONE/SALMETEROL 250/50 60 PUFF DISKUS INH (08:43)
--- NOTE | 2019-10-08 10:21 | OT.IP.TRT ---
Current Diagnoses Spondylolisthesis, cervical region (10/06/19) Other spondylosis with radiculopathy, cervical region (10/06/19) Spinal stenosis, cervical region (10/06/19) Surgery Performed Operation Date: 10/06/19 07:45 Actual Procedures p C3-4, C4-5, C5-6, C6-7 ACDF w/ anterior instrumentation(Not Applicable) - Kinsey Gudino MD Occupational Therapy Treatment Note M2 OT-IP Current Condition Start: 10/07/19 16:12 Freq: Status: Active Protocol: Document 10/07/19 12:28 PJM (Rec: 10/07/19 16:28 PJM [id number]) Occupational Therapy Current Condition Current Condition Evaluation Date 10/07/19 Treatment Diagnosis decreased self care, functional mobility s/p C3-7 ACDF Diagnosis Onset Date 10/06/19 Post Operative Precautions Cervical Spine Precautions Soft Collar for Comfort,No Heavy Lifting,Log Roll M3 OT- IP Subjective and Pain Start: 10/07/19 16:12 Freq: Status: Active Protocol: Document 10/08/19 10:22 [facility] (Rec: 10/08/19 10:49 [facility] [id number]) OT- Subjective Occupational Therapy Visit Type Type Treatment Note Visit Start Time 09:20 Visit Stop Time 10:21 Total Visit Minutes 61 Occupational Therapy Visit Comments Patient Comments Pt wanting to shower but really concerned about getting the soft collar wet and requested to have it wrapped. Patient/Caregiver Goals To go home. OT Pain Assessment Pain When Pain Assessed At Rest Pain Present Pain Present Denied Pain M4 OT- IP ADL's Start: 10/07/19 16:12 Freq: Status: Active Protocol: Document 10/08/19 10:22 [facility] (Rec: 10/08/19 10:49 [facility] [id number]) OT [id number]-[id number] General Evaluation Self-Feeding Ability Independent Comments OT Self-Feeding Comments Pt good understanding to eat softer food initially. OT ADL-Grooming General Evaluation Grooming Ability Standby Assistance Comments OT Grooming Comments seated in chair OT ADL-Dressing General Eval Upper Body Dressing Ability Independent Lower Body Dressing Ability Moderate Assistance Comments OT Dressing Comments Pt tired from the shower and therefore assist to help get brief over her feet and assist for socks. Pt issued sock aid. OT ADL-Bathing Bathing Type Bathing Type Shower General Evaluation Bathing Ability Moderate Assistance Areas Needing Assistance Wash/Dry Back,Wash/Dry Lower Extremities Comments OT Bathing Comments Educated that at home soft collar can be placed in the dryer. Educated daughter in law how to best assist pt for all ADL needs. M5 OT- IP IADL's Start: 10/07/19 16:12 Freq: Status: Active Protocol: Document 10/07/19 12:28 PJM (Rec: 10/07/19 16:28 PJM [id number]) OT-Instrumental Activities of Daily Living Deficits IADL Deficits Identified Deficits Home Safety Awareness Awareness of Need for Assistance at Home Good Awareness Ability to Problem Solve Emergency Able to Problem Solve Situations Medication Management Medication Management No Deficits Identified Money Management Money Management No Deficits Identified Meal Preparation Meal Preparation Caregiver Provides Assist Meal Preparation Comments DIL to assist for 2 weeks, then friends can also assist per pt Teacher Education Director Teacher Education Director Caregiver Provides Assist Teacher Education Director Comments DIL to assist for 2 weeks, then friends can also assist per pt Driving Driving Caregiver Provides Assist Driving Comments DIL to assist for 2 weeks, then friends can also assist per pt M6 OT- IP Functional Cognition Start: 10/07/19 16:12 Freq: Status: Active Protocol: Document 10/07/19 12:28 PJM (Rec: 10/07/19 16:28 PJ [id number]) Cognitive Factors Limiting Selfcare Function Cognitive Ability Level of Alertness Alert Patient Orientation Name,Age,Birthday,Month,Date, Year,Day of Week,Place, Situation Attention Span Ability Capable of Focused Attention, Capable of Sustained Attention Ability to Follow Commands Able to Follow One Step Commands Memory Description No Deficits Noted Safety Awareness No Deficits Noted Problem Solving Ability Needs Assist to Identify Solutions OT- Vision and Hearing OT- Hearing Assessment OT- Hearing Assessment WFL OT- Vision Assessment Visual Acuity WFL M7 OT- IP Mobility and Balance Start: 10/07/19 16:12 Freq: Status: Active Protocol: Document 10/08/19 10:22 [facility] (Rec: 10/08/19 10:49 [facility] [id number]) OT-Transfer Assessment Sit to and From Stand Sit to and from Stand Standby Assistance Transfers Transfer Ability Standby Assistance,Contact Guard Assistance Technique Transfer Destination Chair,Shower Stall Devices Transfer Assistive Devices Gait Belt,4 Wheeled Walker Comments Mobility Comments Reminders to push up from the armrest of the recliner with at least one hand. Pt's left brake does not work and would be best to get another 4WW or have it fixed. Pt and daughter in law both expressed good understanding for this. Suggested to pt if not about to get another 4WW or fix the current one to ask surgeon/PA for 4WW order so that may be able to be dispensed from the hospital. Educated pt's Daughter in law how to cash/ doff gait belt and how to provide assist if needed. OT- Balance Assessment Sitting Balance and Reactions Static Sitting Balance Ability Normal Dynamic Sitting Balance Ability Good Standing Balance and Reactions Static Standing Balance Ability Good Dynamic Standing Balance Ability Fair M8 OT- IP Objective Assessments Start: 10/07/19 16:12 Freq: Status: Active Protocol: Document 10/07/19 12:28 PJM (Rec: 10/07/19 16:28 PJM [id number]) OT Gross Range of Motion Upper Extremity Range of Motion Assessment Within Functional Limits ROM Impairments within C spine precautions OT Strength Comments Strength Comments WFL for self care, not formally tested OT- Coordination Assessment Comments Coordination Comments WFL OT-Muscle Tone Assessment Muscle Tone WNL Yes OT Sensation Assessment Edema Edema Comments pt states she feel slike she has lump in throat M9 OT- IP Assessment and Plan Start: 10/07/19 16:12 Freq: Status: Active Protocol: Document 10/08/19 10:22 [facility] (Rec: 10/08/19 10:49 [facility] [id number]) OT Summary Assessment and Plan Potential Rehabilitation Potential Good Analytic Complexity at Evaluation Low Summary OT Impairments Balance,Functional Mobility, Dressing,Toileting,Bathing, Toilet Transfers,Shower Transfers Progress Towards Goals Progressing Toward Goals Assessment Summary When over ADL's, collar management, equipment needs, car transfers and how to assist pt for functional mobility for ADl needs for pt' s daughter in law who will be staying with her for 2 weeks able to demonstrate good safety and understanding for all needs. Educated for pt to call the daughter in law at night to help get into the bathroom via bill/whistle as pt states will not be awake enough to use her cell phone. Goals Grooming Goal Independent Dressing Goal Standby Assistance Toileting Goal Independent Bathing Goal Minimal Assistance Toilet Transfer Goal Standby Assistance Shower Transfer Goal Contact Guard Assistance Patient/Caregiver Education Goal Demonstrate Post-Op Precautions,Demonstrate Energy Conservation and Pacing, Caregiver Independent Assisting Patient Treatment Plan OT Treatment Plan ADL Training,Functional Mobility,Patient/Family Education,Discharge Planning Discharge Recommendations OT Discharge Recommendations Home with 24/7 Assist Home Equipment Needs 4ww
--- NOTE | 2019-10-08 10:21 | PC.NURSE ---
Assess- Patient is A&Ox3, she was given 1 vicodin for pain of 7/10 and seems to be feeling better .Dressing to anterior neck is cdi. Patient worked with O.T. and she just had a shower, tolerated well. Patient would like to be discharged later today, PA to see her. [facility] wnl and she denies any numbness or tingling.
--- NOTE | 2019-10-08 11:46 | PT.IPTN ---
Current Diagnoses Spondylolisthesis, cervical region (10/06/19) Other spondylosis with radiculopathy, cervical region (10/06/19) Spinal stenosis, cervical region (10/06/19) Surgery Performed Operation Date: 10/06/19 07:45 Actual Procedures p C3-4, C4-5, C5-6, C6-7 ACDF w/ anterior instrumentation(Not Applicable) - Kinsey Gudino MD Physical Therapy Treatment Note M2 PT-IP Current Condition Start: 10/06/19 14:38 Freq: NEEDED Status: Active Protocol: Document 10/07/19 11:17 AB (Rec: 10/07/19 12:19 AB [id number]) Physical Therapy Current Condition Current Condition Evaluation Date 10/07/19 Treatment Diagnosis s/p C4-7 ACDF; difficulty in walking Onset Date 10/06/2019 Precautions Cervical Spine Precautions Soft Collar for Comfort,No Heavy Lifting,Log Roll M3 PT-IP Subjective Start: 10/06/19 14:38 Freq: NEEDED Status: Active Protocol: Document 10/08/19 11:46 AB (Rec: 10/08/19 12:56 AB [id number]) Subjective Physical Therapy Visit Type Type Treatment Note Visit Start Time 11:46 Visit Stop Time 12:02 Total Visit Minutes 16 Number of STONEHAND Visits 0 Physical Therapy Visit Comments Patient Comments pt agreeable to do PT Therapy Pain Assessment Pain When Pain Assessed At Rest Pain Present Pain Present Pain Reported Location neck Intensity 7 Scale Used Numeric (1 - 10) Pain Management Techniques Re-positioning,Timing of Activity with Medications M4 PT-IP Mobility and Gait Start: 10/06/19 14:38 Freq: NEEDED Status: Active Protocol: Document 10/08/19 11:46 AB (Rec: 10/08/19 12:56 AB [id number]) PT-Bed Mobility Assessment Rolling Type of Rolling Log Rolling Level of Assist Standby Assistance Supine to Sit Supine to Sit Standby Assistance Sit to Supine Sit to Supine Standby Assistance Scooting Scooting to Edge of Bed Standby Assistance PT-Transfer Assessment Sit to and From Stand Sit to and from Stand Standby Assistance Equipment Transfer Assistive Device Gait Belt,4 Wheeled Walker Orthotic/Prosthetic Devices or Brace: No Transfers Transfer Destination Bed,Chair Transfer Technique ambulated using 4WW Transfer Ability Level of Assist Standby Assistance,1 Person Assistance,Use of Upper Extremities Comments Mobility Comments pt standing by the sink with her [id number] assisting her. pt ambulated using 4WW towards the bed. DIL was able to cue pt as needed. pt completed log roll supine <> sit x 2 reps SBA and initially with cues but able to complete SBA afterwards. pt ambulated more in her room using 4WW SBA ~ 40 ft. educated on 4WW use/brakes and was able to manage 4WW. pt sat on chair for lunch. positioned on chair. nurse came in and took over. Gait Assessment Gait Gait Assistance Required: Standby Assistance Distance (Feet) 40 Able to Maintain Weight Bearing Status Yes During Gait Assistive Devices Assistive Device Gait Belt,4 Wheeled Walker Orthotic/Prosthetic Devices or Brace: No Gait Deviations General Gait Pattern Antalgic,Decreased Stride Length,Decreased Feet Clearance Factors Limiting Gait Function Factors Limiting Gait Function Decreased Activity Tolerance, Decreased Strength,Limited Range of Motion,Pain,Poor Balance,Poor Safety Awareness M5 PT-IP Objective Assessments Start: 10/06/19 14:38 Freq: NEEDED Status: Active Protocol: Document 10/07/19 11:17 AB (Rec: 10/07/19 12:19 AB [id number]) Orientation Orientation/Cognition Level of Alertness Alert Orientation Name,Age,Birthday,Month,Date, Year,Day of Week,Place, Situation Language Function Ability No Deficits Noted Safety Awareness Decreased Safety Awareness Memory Description Short Term Impaired Gross Range of Motion Lower Extremity ROM Assessment Within Functional Limits Strength Lower Extremity Strength Assessment Within Functional Limits Coordination Assessment Gross Coordination Gross Coordination WNL Sensation Assessment Sensation Gross Sensation WNL Muscle Tone Muscle Tone WNL Yes M6 PT-IP Treatment Start: 10/06/19 14:38 Freq: NEEDED Status: Active Protocol: Document 10/08/19 11:46 AB (Rec: 10/08/19 12:56 AB [id number]) Physical Therapy Treatment Education Education Provided Safety M7 PT-IP Assessment and Plan Start: 10/06/19 14:38 Freq: NEEDED Status: Active Protocol: Document 10/08/19 11:46 AB (Rec: 10/08/19 12:56 AB [id number]) PT Summary Assessment and Plan Potential Rehabilitation Potential Good Summary Impairments Pain,ROM,Strength,Balance, Coordination,Sensation,Tone, Cognition,Bed Mobility, Transfers,Gait,Activity Tolerance Progress Towards Goals Progressing Toward Goals Assessment Summary pt doing well with mobility and pt's DIL is able to assist pt safely. pt plans to go home today. Goals Bed Mobility Goal Independent Transfer Goal Independent,Four Wheeled Walker Gait Goal Independent,Four Wheel Walker Gait Distance 250 Other Goals improve ambulation using SPC SBA 200 ft Days to Meet Goals 5 Frequency of Treatment Frequency Of Treatment Twice a Day Treatment Plan Physical Therapy Treatment Plan Bed Mobility Training,Transfer Training,Gait Training, Therapeutic Exercise,Balance Retraining,Post Op Education, Discharge Planning,Hot or Cold Pack,Neuromuscular Re-ed, Coordination Retraining,Manual Therapy Other Recommendations and Next Treatment continue CG training, ambulate Focus , bed mobility. Recommendations To Nursing Amount of Assist Needed 1 Person Assist Discharge Recommendations PT Discharge Recommendations Home with Assistance
[2019-10-08] MEDS: OXYCODONE 5 MG/5 ML ORAL SOLUTION PO ×2 (12:03→16:34)
[2019-10-08 13:25] VITALS: BP 163/77; PULSE 86; RESP 16; TEMP 37.1; O2SAT 93
[2019-10-08 15:36] VITALS: BP 163/86; PULSE 76; RESP 18; TEMP 36.6; O2SAT 95
--- NOTE | 2019-10-09 17:05 | P.DS_ITS ---
History of Present Illness History of Present Illness Date Patient Seen: 10/08/19 Time Patient Seen: 08:06 Chief complaint: [id number] Narrative: POD #2 s/p multi-level ACDF with Dr. Gudino. Patient reports improvement in pain level since yesterday. Pain is being managed with [place] and dilaudid IV. Still mobilizing slowly with PT secondary to pain. Voiding and eating without difficulty or assistance. Patient denies fever, chills, chest pain, shortness of breath, numbness, tingling, bowel/urinary incontinence. Discharge Providers Provider Date of admission: 10/06/19 06:03 Discharge Date: 10/08/19 Primary care physician: Lani Ley MD Consults: 10/06/19 14:02 Consult to Occupational Therapy Evaluate & Treat Comment: Physician Instructions: Evaluate and treat Consult to Physical Therapy Evaluate & Treat Comment: Physician Instructions: Evaluate and Treat Discharge provider: Raul Patel PA-C Summary Hospital Course Discharge Diagnosis: s/p C3-4 C4-5 C5-6 C6-7 ACDF anxiety arthritis asthma COPD depression easy bruisability foot fracture right hammertoe right foot hypertension incontinence, urine hypothyroid numbness,tingling of left hand pneumonia 2x prolapsed bladder uterine cancer Hospital Course: Patient admitted to hospital s/p C3-4 C4-5 C5-6 C6-[address] Gudino. POD #2 patient was ready for discharge home. Hospital course was notable for marginal pain control and poor progression with PT secondary to pain. Pain management was resolved with switch from [place] to Oxycodone 5mg, which patient tolerated well. Given prescription of oxycodone 5mg for home. Patient was mobilizing with PT prior to discharge. Voiding and eating without difficulty or assistance prior to discharge. Exam Vital Signs (past 8 hours): Oxygen Delivery Method Room Air Oxygen Flow Rate 0 Narrative Exam Narrative: 74 year old female is laying comfortably in bed, in no apparent distress. A&Ox3. Dressing CDI, SCDs in place. Sensory function grossly intact to light touch in upper extremities bilaterally. Radial pulse 2+ bl. Technical Operations Specialist strength 5/5, good ROM in wrists, fingers, and elbows. Calves warm, soft, compressible, nttp. Discharge Plan Discharge Plan Patient Disposition: Home Discharge comment: discharge pending eval of oxycodone dose Discharge orders & Medications Prescriptions: New oxycodone 5 mg tablet 5 mg PO Q4-6H PRN (Reason: pain (scale score 7-10)) Qty: 40 RF: 0 Continued fluticasone propion-salmeterol [Advair Diskus] 250-50 mcg/dose Blister With Device 1 inh INHALATION BID RF: 0 levothyroxine 75 mcg Tablet 75 mcg PO DAILY RF: 0 estradiol 1 mg Tablet 1 mg PO DAILY RF: 0 triamterene-hydrochlorothiazid 37.5-25 mg Tablet 1 tab PO QAM RF: 0 verapamil 240 mg Tablet Extended Release 240 mg PO DAILY RF: 0 citalopram 10 mg Tablet 10 mg PO DAILY RF: 0 alprazolam 0.5 mg Tablet 0.5 mg PO Q8H PRN (Reason: Anxiety) RF: 0 albuterol sulfate 90 mcg/actuation Hfa Aerosol Inhaler 1 puff INHALATION QID PRN (Reason: Shortness Of Breath) RF: 0 Discontinued diclofenac sodium 75 mg Tablet,Delayed Release (Dr/Ec) 75 mg PO BID RF: 0 Follow up/Referrals: Kinsey Gudino MD [Physician] - Lani Ley MD [Primary Care Provider] - Diet/Activity/Treatments Diet: Regular Activity: no excessive bending, lifting, twisting Cold/Heat Therapy: continue cold therapy as needed Skin/Wound/Dressing Care Report to your healthcare provider any signs of infection, such as:: chills, fever, increased pain, unusual drainage and unusual redness Dressing: keep dressing dry. if saturated, contact office for dressing change Visit Report/Discharge Packet Instructions: DI for Prescription Opioid Use, DI for Anterior Cervical Discectomy and Fusion, Oxycodone Stand Alone Forms: Surgery Discharge Visit Report Forms: Patient Portal/API, Stroke Signs & Symptoms Discharge Data Primary Care Provider: Lani Ley Discharges patient from system. Discharge Date/Time: 10/08/19 17:02
== END 2019-10-08 17:02 | disposition home or self-care (01) | DRG 473 ==
PROVIDERS: Admitting Provider Orthopaedic Surgery Orthopaedic Surgery of the Spine; PCP Family Medicine; Visit Provider Orthopaedic Surgery Orthopaedic Surgery of the Spine
PROC: 0RG20A0 Fusion of 2 or more Cervical Vertebral Joints with Interbody Fusion Device, Anterior Approach, Anterior Column, Open Approach (ICD-10-PCS; principal; 2019-10-06 07:45)
DX: M48.02 Spinal stenosis, cervical region (principal); M43.12 Spondylolisthesis, cervical region; M47.22 Other spondylosis with radiculopathy, cervical region; E03.9 Hypothyroidism, unspecified; I10 Essential (primary) hypertension; F41.9 Anxiety disorder, unspecified; J45.909 Unspecified asthma, uncomplicated; Z87.891 Personal history of nicotine dependence; Z85.42 Personal history of malignant neoplasm of other parts of uterus
CPT/HCPCS: 72040; 76000; 94640; 94760; 97116; 97162; 97165; 97530; 97535; C1776; J0131; J1100; J1170; J2060; J2250; J2405; J2704; J3010; J3410

== ENCOUNTER → 2022-06-29 15:37 | Outpatient (CLI) | payer OTHER, SELFPAY ==
[2019-10-06 07:02] VITALS: BMI 25.7
[2022-06-29 16:05] LABS: Add Manual Diff / Slide Review NO; Basophils Absolute Auto 100 /uL (0-100); Basophils Percent Auto 0.9 % (0-2); Eosinophils Absolute Auto 100 /uL (0-450); Hematocrit 35.7 % (36-46); Hemoglobin 12.2 g/dL (12.0-16.0); Lymphocytes Absolute Auto 2200 /uL (1100-4500); Lymphocytes Percent Auto 34.5 % (25-40); Mean Corpuscular HGB Conc 34.1 % (30-36); Mean Corpuscular Hemoglobin 31.1 PG (26-34); Monocytes Absolute Auto 600 /uL (0-900); Neutrophils Absolute Auto 3400 /uL (1500-7000); Neutrophils Percent Auto 53.6 % (50-75); Platelet Count 332 X10^3/uL (150-400); Red Blood Cell Count 3.92 X10^6/uL (4.0-5.2); Red Cell Distribution Width 14.3 % (11.6-14.8); White Blood Cell Count 6.4 X10^3/uL (4.5-11.0)
[2022-06-29 16:10] LABS: Hemoglobin A1C% w Est Avg Glu 5.3 % (4.0-6.0)
[2022-06-29 16:14] LABS: BUN Creatinine Ratio 29.6 (6-22); Blood Urea Nitrogen 24 mg/dL (7-17); Calcium 8.8 mg/dL (8.4-10.2); Carbon Dioxide 25 mmol/L (22-32); Chloride 101 mmol/L (98-107); Estimated Glomerular Filt Rate > 60 mL/min (>60); Glucose 100 mg/dL (80-110); HEMOLYSIS < 15 (0-50); Potassium 3.9 mmol/L (3.4-5.1); Sodium 137 mmol/L (137-145)
== END ==
PROVIDERS: PCP Family Medicine; Referring Provider Orthopaedic Surgery Orthopaedic Surgery of the Spine; Visit Provider Orthopaedic Surgery Orthopaedic Surgery of the Spine
DX: Z01.818 Encounter for other preprocedural examination (principal); R73.9 Hyperglycemia, unspecified; Z01.812 Encounter for preprocedural laboratory examination
CPT/HCPCS: 36415; 80048; 83036; 85025; 93005; 93010

== ENCOUNTER → 2022-07-17 09:19 | Outpatient (CLI) | payer OTHER, SELFPAY ==
[2019-10-06 07:02] VITALS: BMI 25.7
[2022-07-17 10:20] LABS: COVID19 -Nasal RAPID Negative (Negative)
== END ==
PROVIDERS: PCP Family Medicine; Referring Provider Orthopaedic Surgery Orthopaedic Surgery of the Spine; Visit Provider Orthopaedic Surgery Orthopaedic Surgery of the Spine
DX: Z20.822 Contact with and (suspected) exposure to COVID-19 (principal)
CPT/HCPCS: 87635; C9803

== ENCOUNTER 2022-07-19 09:13 | Inpatient (IN) | payer OTHER, SELFPAY ==
[2019-10-06 07:02] VITALS: BMI 25.7
[2022-07-12 09:55] VITALS: BMI 26.4
[2022-07-19] VITALS (22 sets, daily range): BP systolic 112–202; BP diastolic 60–117; PULSE 68–98; RESP 10–97; TEMP 35.7–36.5; O2SAT 93–99; BMI 25.4
--- NOTE | 2022-07-19 | DI.RAD.S_ITS ---
PROCEDURE: XR LUMBAR SPINE 2-3V INDICATIONS: L3-4, L4-5, L5-S1 TLIF TECHNIQUE: 5 intraoperative fluoroscopic views of the lumbar spine were acquired. COMPARISON: None. FINDINGS: Intraoperative fluoroscopic images of lumbar spine shows transpedicular fusion at L3 through S1 levels with intervertebral spacer placement at L3-4 through L5-S1 levels. IMPRESSION: Fluoro guidance was provided intraoperatively for posterior fusion of lumbar spine at L3-4 through L5-S1 levels. Dictated by: Joselito Ovalle M.D. on 07/19/2022 at 16:50 Approved by: Joselito Ovalle M.D. on 07/19/2022 at 16:51
[2022-07-19] MEDS: LACTATED RINGERS 1,000 ML 120 ML IV ×3 (10:29→15:14)
--- NOTE | 2022-07-19 11:37 | PM.PREOP ---
Pre-operative Note COVID-19 COVID-19 status: Negative Result date/Date tested (Pos, Neg/Pending): 07/19/22 Criteria for continued procedure: Expected advancement of disease process, Possibility delay results in more complex future surgery or treatment, Increased loss of function, Continuing or worsening of significant or severe pain, Deterioration of the patient's condition or overall health and Delay expected to result in less-positive ultimate med/surg outcome Interval Note History & Physical reviewed/Exam performed by Physician: Yes Changes to H&P: No
[2022-07-19] MEDS: CEFAZOLIN 2 GM/100 ML PREMIX 100 ML IV ×2 (11:52→19:49)
--- NOTE | 2022-07-19 12:30 | SUR.OPER ---
Prone on spine table, head in foam head support, padded chest and pelvic supports, gel pad at knees, lower legs supported by pillows; nipples, genitalia and toes free of pressure, arms secured on foam padded arm boards at <90 degrees abduction. Tape over blanket at thigh secured to table.
[2022-07-19] MEDS: BUPIVACAINE LIPOSOME 266 MG/20 ML VIAL INJ (12:37)
[2022-07-19] MEDS: BUPIVACAINE 0.25% (PF) 30 ML, EPINEPHrine 0.3 MG INJ (12:38)
[2022-07-19] MEDS: CEFAZOLIN VIAL 1 GM in SODIUM CHLORIDE 0.9% 100 ML IV (15:27)
--- NOTE | 2022-07-19 16:42 | PM.OP.1 ---
Operative Date/Time/Diagnoses Date of procedure: 07/19/22 Time of procedure: 12:00 Pre-op diagnosis: 1. L3-4, L4-5, L5-S1 spinal stenosis with neurogenic claudication 2. L3-4, L4-5 spondylolisthesis Post-op diagnosis: same Procedure & Clinicians Procedure: 1. L3-4, L4-5, L5-S1 Postero-lateral and posterior interbody fusion 2. L3-4, L4-5, L5-S1 interbody cage placement. 3. L3-4, L4-5, L5-S1 decompressive laminectomy with bilateral facetecomies 4. L3-4, L4-5, L5-S1 Posterior segmental instrumentation 5. [place] of bone marrow from iliac crest 6. Utilization of microsurgical technique and operating microscope 7. Utilization of microsurgical technique and operating microscope Same procedure as scheduled: Yes Indications: Patient has been having chronic back pain and worsening lumbar radiculopathy and symptoms of neurogenic claudication. Patient failed multiple conservative management with worsening pain weakness and numbness in her lower extremity. Patient has been having difficulty performing activity of daily living. After discussing risks benefits of treatment options, patient elected proceed with surgery. Surgeon: Kinsey Gudino Medical Observer: Cayla Wild Click Yes if Unassisted: No Anesthesia Type: General Operative Notes Closure Type: primary Specimen(s): none sent Prosthetic devices, grafts, tissues, transplants, or devices: Globus CREO MIS screws, Rise cages Applied: catheter Estimated Blood Loss (mL): 150 Blood products transfused: none Procedure in detail: Patient was seen in the preoperative area. Risks and benefits of the surgery was discussed with the patient. Informed consent was obtained from the patient and placed in the chart. Surgical site was marked. Patient was taken to the operative room. General anesthesia was administered. Prophylactic antibiotic was given to the patient less than 30 min before the incision was made. Patient was placed into a prone position on the Jax table. Patient's back was then prepped and draped in the sterile fashion. Time-out was performed at this time. After patient was prepped and draped, patient's PSIS was palpated and marked bilaterally. Small 1 cm incision was made over the PSIS for placement of the reference probes. Two trocar was placed into the PSIS 1 on each side. The reference probe was attached to the trocar of the reference apparatus. At this time the C-arm imaging was used to confirm AP and lateral of L3-4, L4-L5, L5-S1 vertebrae and merged the C-arm imaging using the ScienceLog[employer] robotic navigation system with the CT of the lumbar spine. After successful merging was completed and confirmed, skin marker was used to js out the skin incision using the ScienceLogic robotic arm. Bilateral incision was made at this time. Pre templated trajectory was used and guided using the ScienceLogic robotic navigation system for bilateral L3, L4, L5, S1 pedicle screw placement. This was done by using the robotic arm to guide the high-speed bur to make a cortical entry point. Next a drill was placed also using the robotic arm and guided using the navigation system drilling partially through bilateral L3, L4, L5 and S1 pedicles. Next L3, L4, L5, S1 pedicle screws it was pre templated and measured was placed onto the power logging truck driver and inserted into the pedicles bilaterally. After all 8 screws were placed C-arm imaging was taken of both AP and lateral to confirm the placement. Excellent placement of the screws were confirmed and a matched precisely with the pre planned screw placement using the navigation system. MARs retractor was inserted using Videumivation guidence. Globus MARS retractors was placed inside the incision and docked onto the L3, L4 and L5 lamina. Using microsurgical technique and operating microscope, a L3, L4, L5 laminectomy and L3-4, L4-5, L5-S1 facetectomy was performed using a Kerrison rongeur. Patient was found have severe lateral recess and neural foramen stenosis which was fully decompressed after the laminectomy facetectomy. More than 75% of the facets were removed during the process of decompression rendering L3-4, L4-5, L5-S1 level grossly unstable and required a fusion procedure at the same time. The disc space at L3-4, L4-5, L5-S1 was identified, and a total diskectomy was performed at L3-4, L4-5, L5-S1 level. The endplates were decorticated using a rasp and shaver. The total diskectomy and decortication was performed at L3-4, L4-5, L5-S1 level in order to to accomplish a L3-4, L4-5, L5-S1 fusion. The local bone from the laminectomy and facetectomy was saved for local bone grafting. After the total diskectomy and decortication was completed, Trifecta bone graft material was combined with local bone that was harvested earlier. At this time, a separate skin is incision was made over the iliac crest. A Jamshidi needle was inserted into the iliac crest through a separate skin incision. 5 cc of bone marrow aspiration was obtained through the separate skin incision using a Jamshidi needle from the iliac crest. The bone marrow aspiration was combined with local bone and the Trifecta bone grafting material. The bone grafting material was placed into the L3-4, L4-5, L5-S1 interbody space along with a expandable cage. The cage was expanded to its maximum height using the torque limiting screwdriver. The disc preparation as well as the cage insertion were also performed under navigation guidance. After the cage was placed, AP and lateral C-arm imaging was taken to confirm placement of the cage and excellent position was confirmed. Globus MARS retractor was inserted and docked onto the L3-4, L4-5, L5-S1 posterolateral gutter on the right side. Using the power drill, posterior-lateral decortication was performed at L3-4, L4-5, L5-S1 level until bleeding cortical bone was identified. The remaining bone grafting material was placed into the L3-4, L4-5, L5-S1 posterior lateral gutter he order to accomplish posterolateral fusion at the L3-4, L4-5, L5-S1 level. At this time the tulips were attached to the L3, L4, L5, S1 pedicle screw shanks. After measuring the length of the rods, they were inserted into the tulips of the pedicle screws and locked in place using locking caps and torque limiting screwdriver bilaterally. Total 6 caps and 2 titanium rods was used in order to complete the posterior instrumentation construct. After all the hardware was placed, and confirmed with AP and lateral C-arm imaging, the wound was then irrigated with sterile normal saline and packed with Ray-Bell gauze for 3 min to accomplish hemostasis. After the gauze was removed the deep fascia was closed with #1 Vicryl suture. The subcutaneous layer was closed with 2-0 Vicryl. The skin was closed with skin fina. Patient tolerated the procedure well. There were no complications. Neuro monitoring system was used to monitor patient's neurologic status throughout entire procedure. There was no disturbance of the neural monitoring signals throughout the case. Complications: none Post-operative Condition: stable Disposition: PACU Plan for aftercare: Admit to inpatient hospital
[2022-07-19] MEDS: hydrOXYzine 50 MG/ML INJ 25 MG IM (17:27)
[2022-07-19] MEDS: HYDROCODONE/ACET 5/325 TABLET 1 TAB PO (18:16)
[2022-07-19] MEDS: SODIUM CHLORIDE 0.9% 1,000 ML 100 ML IV (18:59)
[2022-07-19] MEDS: HYDROMORPHONE 0.5 MG INJ IV ×4 (18:59→23:37)
[2022-07-19] MEDS: SENNOSIDES 8.6 MG TABLET 17.2 MG PO (20:21)
[2022-07-19] MEDS: DOCUSATE 100 MG CAPSULE PO (20:21)
[2022-07-19] MEDS: HYDROCODONE/ACET 5/325 TABLET 2 TAB PO (21:34)
--- NOTE | 2022-07-19 22:10 | PC.NURSE ---
At shift change patient had been given IV Dilaudid but continuing to moan and complain of back pain and muscle spasms in legs. Dr Alvarez was contacted as pain medication was not sufficient to control pain and reviewed what patient had already received for pain as well as allergies. Order was received to give additional bolus of IV Dilaudid and change frequency to q1h as needed. Patient did receive Dilaudid bolus at 1944 after which it was noted that patient and her son were singing in room and patient appearing more comfortable. Given Dilaudid again at 2049, repositioned and ice applied. Medicated with po Vicodin at 2133 and patient stating pain is better controlled Patient is alert and oriented. Breath sounds CTA with RA sat of 93%. HRR. BP initially elevated upon return from PACU but at time of assessment was 118/71. Denies nausea and did eat crackers and applesauce. Due to history of cervical spine surgery has some difficulty getting pills down. BT hypoactive and denies flatus. Indwelling catheter is patent; urine is clear, yellow. Needing assistance to reposition in bed. Dressing to back is CDI. CMS is intact bilaterally. Came to floor with calf SCD's on and patient prefers to leave them on rather than switching to foot SCD's. Fall risk score is moderate and bed alarm is activated.
[2022-07-20] VITALS (7 sets, daily range): BP systolic 116–149; BP diastolic 58–92; PULSE 72–90; RESP 16–18; TEMP 35.7–36.3; O2SAT 95–99
[2022-07-20] MEDS: HYDROMORPHONE 0.5 MG INJ IV ×4 (00:56→21:36)
[2022-07-20] MEDS: HYDROCODONE/ACET 5/325 TABLET 2 TAB PO ×2 (01:29→06:12)
[2022-07-20] MEDS: CEFAZOLIN 2 GM/100 ML PREMIX 100 ML IV (03:57)
[2022-07-20 06:10] LABS: Hemoglobin 8.7 g/dL (12.0-16.0)
[2022-07-20] MEDS: SODIUM CHLORIDE 0.9% 1,000 ML 100 ML IV (06:11)
[2022-07-20] MEDS: ALPRAZolam 0.5 MG TABLET PO ×2 (06:30→19:42)
--- NOTE | 2022-07-20 07:46 | PM.PNPO.1 ---
Subjective Subjective Date Patient Seen: 07/20/22 Time Patient Seen: 07:46 Interval history: Patient is complaining of severe pain this morning. She is not worked with physical therapy yet. She also notes she had a mental breakdown after awaking from surgery yesterday. She denies any new numbness or tingling. Exam Vital Signs (past 8 hours): - 07/19/22 23:50 07/20/22 00:04 07/20/22 03:45 Temperature 97.0 F L 97.0 F L 97.3 F L Pulse Rate 90 90 82 Respiratory Rate 18 17 18 Blood Pressure 148/92 H 148/92 H 145/82 H Pulse Oximetry 97 97 96 Oxygen Flow Rate 0 0 0.5 Oxygen Delivery Method Room Air Oxygen Flow Rate 0.5 Narrative Exam Narrative: Pleasant 77-year-old female, resting comfortably in bed, no acute distress. Dressing demonstrates some serosanguineous saturation on the right lateral incision, approximately 2 x 3 cm, no surrounding erythema, induration, or bina pus. Bilateral lower extremity: Motor functions are grossly intact, sensation is grossly intact to light touch, calves are soft and nontender to palpation. Objective Labs Result Diagrams: 07/20/22 05:58 Labs: Laboratory Results - last 24 hr 07/20/22 05:58 Hgb 8.7 L Hct 26.0 L PFSH Medical History Anxiety Arthritis Asthma COPD (chronic obstructive pulmonary disease) Depression Easy bruisability Foot fracture, right (~2011) Hammertoe of right foot (~2011) HTN (hypertension) Hypothyroidism Incontinence of urine Numbness and tingling in left hand Pneumonia Prolapsed bladder Uterine cancer Surgical History History of bladder suspension procedure History of partial hysterectomy Hx of appendectomy Hx of bilateral cataract extraction Hx of cholecystectomy Hx of tonsillectomy Hx of tubal ligation Status post cervical spinal fusion (10/06/19) Social History household members: none Smoking Status: Former smoker alcohol intake: former Assessment & Plan Post-op Postoperative Procedures: Procedures Operation Date: 07/19/22 11:00 Actual Procedure Side Surgeon p L3-4, L4-5, L5-S1 TLIF w. posterior instrumentation-Robot Kinsey Gudino MD Postoperative day: 1 Postoperative status: marginal pain control Postoperative status narrative: -stable status post L3-4, L4-5, L5-S1 TLIF Postoperative plan narrative: -mobilize with PT/OT. Weightbearing as tolerated with front wheel walker or cane. No bending, lifting, twisting x6 weeks -continue with multimodal pain management. The patient is complaining of inadequate pain control. She would like to try the oxycodone again. Added oxy 5-10 mg for moderate to severe pain, scheduled Tylenol. The patient declined tramadol for breakthrough pain. -discontinue urinary catheter once mobilizing -DC home under the care of her son, likely tomorrow, pending PT clearance. Patient is requesting home health services upon discharge. I explained we should see how she does with physical therapy and occupational therapy to make a better decision on this.
[2022-07-20] MEDS: GABAPENTIN 300 MG CAPSULE PO (08:19)
[2022-07-20] MEDS: ACETAMINOPHEN 325 MG TABLET 650 MG PO (08:19)
[2022-07-20] MEDS: TRIAMTERENE/HCTZ 37.5/25 CAPSULE 1 CAP PO (08:20)
[2022-07-20] MEDS: DOCUSATE 100 MG CAPSULE PO ×2 (08:20→19:42)
[2022-07-20] MEDS: VERAPAMIL SR 120 MG TABLET 240 MG PO (08:20)
[2022-07-20] MEDS: LEVOTHYROXINE 75 MCG TABLET PO (08:20)
[2022-07-20] MEDS: BUDESONIDE 0.5 MG/2 ML NEB INH (08:28)
[2022-07-20] MEDS: OXYCODONE IR 10 MG TABLET PO (09:46)
--- NOTE | 2022-07-20 11:26 | CM.DANOTE ---
Patient is a 77 yo female who was admitted on 07/19/22 for TLIF. Pt has [employer] [facility] for insurance and her PCP is Lani Ley. EMR was reviewed. Per Ortho PA, pt had some pain management issues overnight but seems better controlled today and to work with PT with possible d/c home tomorrow with HH. PT ordered and pending. SW met bedside with pt and explained role and she confirms she lives alone in [facility] and is independent at baseline with ADL's, has a walker at home, drives and denies any hx of HH or SNF. Pt states her son Christopher is her DPOA and is here now and plans to stay 2 weeks with pt for assist. Pt states she is but has supportive friends locally. SW inquired about HH and pt states she feels this will be needed at d/c and no HH preference. SW made [facility] referral due to pt's insurance and [facility] is the only local contracted HH agency for [employer]. SW faxed clinicals to review and completed F2F. Plan: SW to follow closely after PT eval to confirm safe plan of home with son to assist and new [facility] referral made. SW to fax F2F, HH orders, and d/c summ at discharge. NATIVIDAD Steinberg Discharge Planning/Care Management CM Discharge Assessment Start: 07/20/22 11:18 Freq: Status: Active Protocol: Document 07/20/22 11:19 BF (Rec: 07/20/22 11:26 BF [id number]) Discharge Planning Assessment Assigned Roll Handler NATIVIDAD Shea DPOA/Assigned Designee Name ahsan White Contact Information [phone] Advance Directives? Yes Advance Directives on File Yes History Provided By Patient,Family Member,Medical Record Has Patient been admitted in last 30 No days? Prior Living Arrangements Apartment/Condo Household Members none Type of transporation used prior to Drives own vehicle admit Independent with ADL's Yes Is patient alert and oriented? Yes Caregiver for Another No Community Services used prior to Physical Therapy admission: DME Already Rented / Owned FWW / Walker Patient/Family Preference Home with Home Health Barriers to Discharge No Discharge Plan Home with Home Health Community Services Physical Therapy,Home Health Aid,Home Health Nurse Transportation Arrangement Son plans to provide transport at d/c Referrals Initiated Home Health If patient plan is home with home health Yes : Has signed face to face form been completed? Medicare Choice List Provided Yes SNF/HH Preference None, [facility] referral made as they only ones contracted with [employer] Updated in Patient Room with Yes name and ext. # of Roll Handler Review Status In Process Please Provide Date Initial DC 07/20/22 Assessment Was Performed Next Review Type Continued Stay Review Pre-Anesthesia Assessment Start: 07/12/22 09:55 Freq: Status: Complete Protocol: Document 07/12/22 09:55 CAB (Rec: 07/12/22 10:37 CAB [id number]) Pre-Anesthesia Assessment PAC Comment Pt s/p 4 level cervical fusion, still has difficulty with positioning/extending neck, pain Preferred Name Frances Patient Information Reviewed Via Phone Assessment Assessment Completed With Patient Diagnostic Results BMP/CMP,CBC,EKG Comment Labs/ECG @ [facility] 06/29/22, COVID screen @ 07/17/22 Primary Care Provider Lani Ley Seen Specialist in Last 12 Months Yes Specialist Seen Orthopedist Primary Language Kuwaiti Preferred Language Kuwaiti Software Integration Developer Required No Height 152.4 cm Weight 61.235 kg Body Mass Index (BMI) 26.4 Hearing Ability Normal Visual Assist Glasses Dentition Type Teeth, Natural Present Barriers to Learning None Hx Anesthesia Reactions Yes: Metabilizes numbing medication quickly. I'm verry very asthmatic Hx Family Anesthesia Reaction No Hx Malignant Hyperthermia No Hx Blood Transfusions No Hx Blood Transfusion Reaction No Anesthesia Review Requested No alcohol intake former Smoking Status Former smoker Tobacco type cigarettes how long ago did patient quit smoking Quit 1993 Substance Use Type does not use Pain Present Pain Reported Musculoskeletal Symptoms Abnormal Gait,Back Pain, Difficulty Walking,Joint Pain, Neck Pain History of Falling (Recent or History of No ) Patient is completely paralyzed or No completely immobile Mental Status Oriented to own ability Is patient on oxygen? No Does patient have PARR/SOB Yes: r/t Asthma Hx Sleep Apnea No CPAP/BIPAP use not prescribed Currently Taking a Beta [place] No Can You Climb a Flight of Stairs Without No SOB Hx Chest Pain No Hx SOB Yes: r/t Asthma Hx Syncope or Dizziness No Anti-Coagulant Therapy No Has a [place] Boatman No Cardiac Testing No Hx Pacemaker/ICD No Pacemaker Rep Required? No Cardiac Clearance Received No Comment Walks her dog twice a day Diet Type At Home Regular Dysphagia No Bladder Pattern Incontinent Urinary Catheter Present No Hx Urinary Self Catheterization No Diabetes No Patient No Lactating No Hx Drug Resistant Organism No Presence of External or Internal Medical Yes: Bilat eye lenses, L uni Devices knee, cervical hardware Have you had any close contact with Yes: Approx 2 months ago, someone diagnosed with COVID-19? group meeting 5 of 9 had Covid Received a COVID vaccine? Yes Received all doses? Yes Marital Status / Lives With none Current Living Arrangements Apartment/Condo Number of Floors (Floors) One Floor Support System Child/Children,Friend(s) Does the Patient Have Assistance After Yes: Son will stay w/pt to Surgery assist with care Patient Discharge Plan Description Return Home Comment Pt advised possible 2 day length of stay per surgeon Feels Safe in Current Environment Yes Been Physically Hurt or Threatened By a No Person in Current Environment Do you have thoughts of harming yourself None or others? Are you currently considering suicide? No Do you have a plan to hurt yourself or No Plan others? Do You Have Any Spiritual Beliefs That No May Affect Your HC Choices? Do You Have Any Cultural Practices That No May Affect Your HC Choices? Who Can We Speak to About Patient's Care Family, friends Identifying Code for Release of Patient Declines to issue Information Health Care Proxy/Next of Kin Isidro (son) Christopher (son) Health Care Proxy Phone Number Isidro: [phone], Christopher: [phone] or [phone] Emergency Contact Name Isidro (son) Christopher (son) Emergency Contact Phone Number Isidro: [phone], Christopher: [phone] or [phone] Advance Directives? No Power of Lab Tester No PAC Instructions Durable medical equipment, Medications to take/avoid, Nasal antibiotic,No ETOH/ petroleum product on skin DOS, NPO,Sensory aids,Sturdy shoes/ comfortable clothes,Do not bring valuables and remove jewelry
--- NOTE | 2022-07-20 12:44 | PT-IP ANOTE ---
checked on pt this morning and refusing PT. stated that she needs her pain meds to work first. nurse giving pt pain meds. checked back on pt after ~ 1 hour and stated that her pain meds that was given this morning did not work and nurse has to give her dialudid and stated that now she is heavily medicated and does not want to move or do PT. nurse aware. will f/u.
--- NOTE | 2022-07-20 14:15 | OT.IP.EVAL ---
Current Diagnoses Cauda equina syndrome (07/19/22) Spinal stenosis, lumbar region with neurogenic claudication (07/19/22) Ankylosing hyperostosis [[place]], lumbar region (07/19/22) Surgery Performed Operation Date: 07/19/22 11:00 Actual Procedures p L3-4, L4-5, L5-S1 TLIF w. posterior instrumentation-Robot - Kinsey Gudino MD Past Medical History (Last Reviewed 07/20/22 @ 07:47 by Regina Alfaro PA-C) Anxiety Arthritis Asthma COPD (chronic obstructive pulmonary disease) Depression Easy bruisability Foot fracture, right (~2011) Hammertoe of right foot (~2011) HTN (hypertension) Hypothyroidism Incontinence of urine Numbness and tingling in left hand Pneumonia Prolapsed bladder Uterine cancer Surgical History (Last Reviewed 07/20/22 @ 07:47 by Regina Alfaro PA-C) History of bladder suspension procedure History of partial hysterectomy Hx of appendectomy Hx of bilateral cataract extraction Hx of cholecystectomy Hx of tonsillectomy Hx of tubal ligation Status post cervical spinal fusion (10/06/19) Occupational Therapy Inpatient Evaluation/Re-Eval M1 PT/OT-IP Prior Functional Status Start: 07/20/22 15:55 Freq: NEEDED Status: Active Protocol: Document 07/20/22 15:55 [facility] (Rec: 07/20/22 16:25 [facility] [id number]) Medical Review Prior Functional Status Communication Independent Activities of Daily Living and IADL's Pt states able to do all her ADL and IADL's on her own. Social History Household Members none Living Arrangements House Number of Floors (Floors) One Floor Number of Stairs To Enter/Railing? no steps to enter per pt Home Environment Standard Height Toilet,Walk in Shower Home Equipment Four Wheel Walker,Straight Cane,Shower Seat without Backrest,Hand Held Shower, Loader Machine,Grab Bars Near Toilet, Grab Bars In Shower Additional Social History Comment Pt states that her son to stay with her for two week, but to have her girlfriends assist with showering and toileting needs. M2 OT-IP Current Condition Start: 07/20/22 15:55 Freq: Status: Active Protocol: Document 07/20/22 15:55 [facility] (Rec: 07/20/22 16:25 [facility] [id number]) Occupational Therapy Current Condition Current Condition Evaluation Date 07/20/22 Treatment Diagnosis S/p L3-4, l4-5,L5-S1 TLIF Diagnosis Onset Date 07/19/22 Post Operative Precautions Lumbar Precautions Log Roll,No Twisting,Limit Bending,Lifting Restriction of 10 lbs,Gait Belt above Incisional Area M3 OT- IP Subjective and Pain Start: 07/20/22 15:55 Freq: Status: Active Protocol: Document 07/20/22 15:55 [facility] (Rec: 07/20/22 16:25 [facility] [id number]) OT- Subjective Occupational Therapy Visit Type Type Initial Evaluation Visit Start Time 13:40 Visit Stop Time 14:15 Total Visit Minutes 35 Occupational Therapy Visit Comments Patient Comments Pt agreeing to get up , PT also present for the beginning of OT eval. Patient/Caregiver Goals TO go home. OT Pain Assessment Pain When Pain Assessed During Mobility Pain Present Pain Present Pain Reported Location lower back Intensity 7 Scale Used Numeric (0 - 10) M4 OT- IP ADL's Start: 07/20/22 15:55 Freq: Status: Active Protocol: Document 07/20/22 15:55 [facility] (Rec: 07/20/22 16:25 [facility] [id number]) OT [id number] Comments OT Self-Feeding Comments NOt at meal time. OT ADL-Grooming Comments OT Grooming Comments Not performed. OT ADL-Oral Care Comments Oral Care Comments Not performed, educated for pt to best spit into a cup or hinge at her hips to best follow her back precautions at this time. OT ADL-Dressing General Eval Lower Body Dressing Ability Maximum Assistance Areas Needing Assistance Socks Comments OT Dressing Comments Able to initiate showing pt use of LB dressing equipment to help with her independence for ADl needs. OT ADL-Toileting Comments OT Toileting Comments Pt insistent that she will be able to do her own toileting on her own. At this time due to pt's poor balance, pt will require assist for toileting needs. OT ADL-Bathing Comments OT Bathing Comments To attempt showering tomorrow. M5 OT- IP IADL's Start: 07/20/22 15:55 Freq: Status: Active Protocol: Document 07/20/22 15:55 [facility] (Rec: 07/20/22 16:25 [facility] [id number]) OT-Instrumental Activities of Daily Living Home Safety Awareness Home Safety Comments Pt a bit groggy and not thinking well due to medications and would be best for her son to be there to assist with all her needs of ADL's , IADL's and mobility needs. M6 OT- IP Functional Cognition Start: 07/20/22 15:55 Freq: Status: Active Protocol: Document 07/20/22 15:55 [facility] (Rec: 07/20/22 16:25 [facility] [id number]) Cognitive Factors Limiting Selfcare Function Cognitive Ability Level of Alertness Confusional State Patient Orientation Name Attention Span Ability Capable of Focused Attention, Capable of Sustained Attention Ability to Follow Commands Able to Follow One Step Commands with Increased Time, Able to Follow One Step Commands with Repetition Memory Description Short Term Impaired Safety Awareness Decreased Recall of Precautions,Decreased Ability to Apply Precautions, Underestimates Need for Assistance Cognitive Comments Cognitive Assessment Comments Pt a bit groggy from pain medications and not thinking well. Pt was asking to have the catheter placed back in when it was never removed. Pt having a hard time to follow commands and needing concrete simple commands to follow. Pt states she would rather not be in pain versus not be thinking well. OT- Vision and Hearing OT- Hearing Assessment OT- Hearing Assessment WFL OT- Vision Assessment Visual Acuity Glasses All The Time M7 OT- IP Mobility and Balance Start: 07/20/22 15:55 Freq: Status: Active Protocol: Document 07/20/22 15:55 [facility] (Rec: 07/20/22 16:25 [facility] [id number]) OT- Bed Mobility Assessment Rolling Type of Rolling Roll to Right Level of Assistance Moderate Assistance Supine to Sit Supine to Sit Assist Moderate Assistance OT-Transfer Assessment Sit to and From Stand Sit to and from Stand Moderate Assistance Transfers Transfer Ability Moderate Assistance Technique Transfer Destination Bed,Chair Transfer Technique Stand Step Pivot Devices Transfer Assistive Devices Gait Belt,Front Wheeled Walker Comments Mobility Comments MODA to help with her legs to get off the bed and MODA to stand and for assist for balance, FWW guidance by PT. OT- Balance Assessment Sitting Balance and Reactions Static Sitting Balance Ability Good Dynamic Sitting Balance Ability Fair Standing Balance and Reactions Static Standing Balance Ability Poor Dynamic Standing Balance Ability Poor M8 OT- IP Objective Assessments Start: 07/20/22 15:55 Freq: Status: Active Protocol: Document 07/20/22 15:55 [facility] (Rec: 07/20/22 16:25 [facility] [id number]) OT Gross Range of Motion Upper Extremity Range of Motion Assessment Within Functional Limits OT Strength Upper Extremity Strength Assessment Within Functional Limits OT-Muscle Tone Assessment Muscle Tone WNL Yes M9 OT- IP Assessment and Plan Start: 07/20/22 15:55 Freq: Status: Active Protocol: Document 07/20/22 15:55 [facility] (Rec: 07/20/22 16:25 [facility] [id number]) OT Summary Assessment and Plan Potential Rehabilitation Potential Good Analytic Complexity at Evaluation Low Summary OT Impairments Pain,Balance,Functional Mobility,Grooming,Dressing, Toileting,Bathing,Toilet Transfers,Shower Transfers, Activity Tolerance Progress Towards Goals Slow Progress due to Pain,Slow Progress due to Cognition Assessment Summary Pt low complexity and main barriers are pain, grogginess from medication, and now needing one person assist for ADl and mobility needs. Pt's son to be here for caregiver tomorrow at 1030AM. Pending caregiver training, hopefully pt able to go home with her son with assist. Home health would also be beneficial for the pt. Goals Grooming Goal Independent Dressing Goal Independent,Minimal Assistance Toileting Goal Independent Bathing Goal Independent Toilet Transfer Goal Independent Shower Transfer Goal Independent Days to Meet Goals 15 Frequency of Treatment Frequency Of Treatment Once a Day Treatment Plan OT Treatment Plan ADL Training,Functional Cognition Training,Functional Mobility,Patient/Family Education,Discharge Planning Other Treatment Recommendations and Next caregiver training for Treatment Focus showering and toileting needs Discharge Recommendations OT Discharge Recommendations Home with Assistance,Home Health Home Equipment Needs FWW, sock aid Transportation Needs at Discharge Private Vehicle
--- NOTE | 2022-07-20 14:25 | PT.IIE ---
Current Diagnoses Cauda equina syndrome (07/19/22) Spinal stenosis, lumbar region with neurogenic claudication (07/19/22) Ankylosing hyperostosis [[place]], lumbar region (07/19/22) Surgery Performed Operation Date: 07/19/22 11:00 Actual Procedures p L3-4, L4-5, L5-S1 TLIF w. posterior instrumentation-Robot - Kinsey Gudino MD Surgical History (Last Reviewed 07/20/22 @ 07:47 by Regina Alfaro PA-C) History of bladder suspension procedure History of partial hysterectomy Hx of appendectomy Hx of bilateral cataract extraction Hx of cholecystectomy Hx of tonsillectomy Hx of tubal ligation Status post cervical spinal fusion (10/06/19) Medical History (Last Reviewed 07/20/22 @ 07:47 by Regina Alfaro PA-C) Anxiety Arthritis Asthma COPD (chronic obstructive pulmonary disease) Depression Easy bruisability Foot fracture, right (~2011) Hammertoe of right foot (~2011) HTN (hypertension) Hypothyroidism Incontinence of urine Numbness and tingling in left hand Pneumonia Prolapsed bladder Uterine cancer Physical Therapy Inpatient Evaluation/Re-Eval M1 PT/OT-IP Prior Functional Status Start: 07/20/22 16:32 Freq: NEEDED Status: Active Protocol: Document 07/20/22 14:25 [facility] (Rec: 07/20/22 16:45 [facility] [id number]) Medical Review Prior Functional Status Medical History Reviewed Yes Communication able to make needs known Mobility and Gait pt stated that she is modified independent with all mobilities and ambulation without AD indoors but tends to furniture cruise and occasionally uses a 4WW; uses a SPC for outdoor mobility short distances and uses a 4WW for long distance outdoor mobility Activities of Daily Living and IADL's per OT note: Pt states able to do all her ADL and IADL's on her own. Social History Household Members none Living Arrangements House Number of Floors (Floors) One Floor Number of Stairs To Enter/Railing? no steps to enter per pt Home Environment High Toilet,Walk in Shower Home Equipment Four Wheel Walker,Straight Cane,Shower Seat with Backrest ,Hand Held Shower,Airway Traffic Controller,Grab Bars Near Toilet,Grab Bars In Shower Additional Social History Comment Pt plans to have her son assist her and will stay with her for 2 weeks but stated that her son will not assist her with toileting and shower needs and she has hired services to assist her with those M2 PT-IP Current Condition Start: 07/20/22 16:32 Freq: NEEDED Status: Active Protocol: Document 07/20/22 14:25 [facility] (Rec: 07/20/22 16:45 [facility] [id number]) Physical Therapy Current Condition Current Condition Evaluation Date 07/20/22 Treatment Diagnosis s/p L3-4, L4-5, L5S1 TLIF; difficulty in walking Onset Date 07/19/22 M3 PT-IP Subjective Start: 07/20/22 16:32 Freq: NEEDED Status: Active Protocol: Document 07/20/22 14:25 [facility] (Rec: 07/20/22 16:45 AB [id number]) Subjective Physical Therapy Visit Type Type Initial Evaluation Visit Start Time 14:25 Visit Stop Time 15:00 Total Visit Minutes 35 Number of UTILITY FORESTER Visits 0 Physical Therapy Visit Comments Patient Comments agreeable to do PT Therapy Pain Assessment Pain When Pain Assessed At Rest Pain Present Pain Present Pain Reported Location lower back Intensity 8 Scale Used Numeric (0 - 10) Pain Behaviors Guarding Pain Management Techniques Distraction,Modification of Treatment,Re-positioning M4 PT-IP Mobility and Gait Start: 07/20/22 16:32 Freq: NEEDED Status: Active Protocol: Document 07/20/22 14:25 [facility] (Rec: 07/20/22 16:45 AB [id number]) PT-Bed Mobility Assessment Supine to Sit Supine to Sit Moderate Assistance,1 Person Assistance,Head of Bed Elevated,Bedrails Scooting Scooting to Edge of Bed Moderate Assistance PT-Transfer Assessment Sit to and From Stand Sit to and from Stand Moderate Assistance,1 Person Assistance,Use of Upper Extremities Equipment Transfer Assistive Device Gait Belt,Front Wheeled Walker Orthotic/Prosthetic Devices or Brace: No Transfers Transfer Destination Chair Transfer Technique ambulated Transfer Ability Level of Assist Moderate Assistance,Use of Upper Extremities Comments Mobility Comments educated pt on back precautions. completed log roll supine to sit mod A and max cues. pt requiring max cues with all tasks. pt able to sit on EOB SBA. completed sit to stand mod A and max cues and ambulated to the chair using FWW mod A and cues . educated pt on safety and use of FWW at this time. pt only has a 4WW at home. stated that she will try to get one for home use. will f/u. pt agreed to abmulate again and educated on increase LE elevation completed 15 ft of ambulation using FWW mod A and cues. pt sat back on chair. call light and table placed within reach. left pt with OT in room. Gait Assessment Gait Gait Assistance Required: Moderate Assistance,1 Person Assist Distance (Feet) 15 Able to Maintain Weight Bearing Status Yes During Gait Assistive Devices Assistive Device Gait Belt,Front Wheeled Walker Orthotic/Prosthetic Devices or Brace: No Gait Deviations General Gait Pattern Antalgic,Decreased Stride Length,Decreased Feet Clearance,Narrow Based Gait, Step-to Gait Factors Limiting Gait Function Factors Limiting Gait Function Decreased Activity Tolerance, Decreased Strength,Difficulty Following Directions,Limited Range of Motion,Pain,Poor Balance,Poor Safety Awareness PT-Balance Assessment Sitting Balance and Reactions Static Sitting Balance Ability Good Dynamic Sitting Balance Ability Good Standing Balance and Reactions Static Standing Balance Ability Fair Dynamic Standing Balance Ability Poor Device Used FWW M5 PT-IP Objective Assessments Start: 07/20/22 16:32 Freq: NEEDED Status: Active Protocol: Document 07/20/22 14:25 [facility] (Rec: 07/20/22 16:45 AB [id number]) Orientation Orientation/Cognition Level of Alertness Alert Orientation Name Language Function Ability No Deficits Noted Safety Awareness Decreased Safety Awareness Memory Description Short Term Impaired Comments with confusion Gross Range of Motion Lower Extremity ROM Assessment Within Functional Limits Strength Lower Extremity Strength Assessment Bilaterally Impaired Hip 3+/5 Knee 4-/5 Sensation Assessment Sensation Gross Sensation WNL Muscle Tone Muscle Tone WNL Yes M6 PT-IP Treatment Start: 07/20/22 16:32 Freq: NEEDED Status: Active Protocol: Document 07/20/22 14:25 [facility] (Rec: 07/20/22 16:45 AB [id number]) Physical Therapy Treatment Education Education Provided Precautions,Weight Bearing Status,Post-Op Packet,Safety M7 PT-IP Assessment and Plan Start: 07/20/22 16:32 Freq: NEEDED Status: Active Protocol: Document 07/20/22 14:25 [facility] (Rec: 07/20/22 16:45 AB [id number]) PT Summary Assessment and Plan Potential Rehabilitation Potential Fair Status of Condition at Evaluation Evolving Summary Impairments Pain,ROM,Strength,Balance, Coordination,Sensation,Tone, Cognition,Bed Mobility, Transfers,Gait,Activity Tolerance Assessment Summary pt continues to c/o LBP and requiring mod A with mobility using FWW. caregiver training set up for tomorrow at 1030 am . will continue to assess progress. Goals Bed Mobility Goal Independent Transfer Goal Independent,Front Wheeled Walker Gait Goal Independent,Front Wheel Walker Gait Distance 150 Days to Meet Goals 5 Frequency of Treatment Frequency Of Treatment Twice a Day Treatment Plan Physical Therapy Treatment Plan Bed Mobility Training,Transfer Training,Gait Training, Therapeutic Exercise,Balance Retraining,Post Op Education, Discharge Planning,Hot or Cold Pack,Neuromuscular Re-ed, Coordination Retraining,Manual Therapy Other Recommendations and Next Treatment Caregiver trainin07/21/22 Focus Sun 1030am Precautions Lumbar Precautions Log Roll,No Twisting,Limit Bending,Lifting Restriction of 10 lbs,Gait Belt above Incisional Area Recommendations To Nursing Amount of Assist Needed 1 Person Assist Discharge Recommendations PT Discharge Recommendations Home with Assistance,Home Health,SNF Rehab,Home vs SNF Transportation Needs at Discharge Wheelchair/Cabulance
[2022-07-20] MEDS: HYDROCODONE/ACET 10/325 TABLET 1 TAB PO ×2 (15:38→19:19)
--- NOTE | 2022-07-20 18:49 | PC.NURSE ---
This am, pain meds changed from [place] to oxycodone. After one dose of oxycodone, pt states no change in pain in addition to seeing stars and requests pain meds to be changed back to [place]. Regina VAUGHN contacted and order changed back to [place] but to a higher dose to help with pain control.
[2022-07-20] MEDS: SENNOSIDES 8.6 MG TABLET 17.2 MG PO (19:41)
[2022-07-20] MEDS: SODIUM CHLORIDE 0.9% FLUSH 10 ML IV (21:37)
[2022-07-21] MEDS: HYDROMORPHONE 0.5 MG INJ IV ×5 (01:21→13:15)
[2022-07-21] MEDS: SODIUM CHLORIDE 0.9% FLUSH 10 ML IV ×3 (01:21→08:44)
[2022-07-21] MEDS: ACETAMINOPHEN 325 MG TABLET 650 MG PO ×2 (01:25→13:16)
--- NOTE | 2022-07-21 02:15 | PC.NURSE ---
Pt. been requesting Dilaudid for pain. States Vicodin & Oxycodone not helping my pain. Medicated x2 doses of 0.5mg of IVP Dilaudid so far this shift. Pt. able to sleep after medicated with Dilaudid, will monitor & cont. POC.
[2022-07-21] MEDS: HYDROCODONE/ACET 10/325 TABLET 1 TAB PO ×3 (05:21→13:16)
--- NOTE | 2022-07-21 05:26 | PC.NURSE ---
Requested Vicodin for pain & motnero catheter discontinued after she stood up at the bedside. Will cont. POC & monitor
[2022-07-21 05:33] VITALS: BP 135/65; PULSE 76; RESP 16; TEMP 36.1; O2SAT 93
--- NOTE | 2022-07-21 07:02 | PC.NURSE ---
Pt. requested Dilaudid states the Vicodin did not help my pain it is now @ 8/10 pain level. 0.5 mg IVP Dilaudid admin.
--- NOTE | 2022-07-21 07:25 | P.DS_ITS ---
History of Present Illness History of Present Illness Date Patient Seen: 07/21/22 Time Patient Seen: 07:26 Chief complaint: INPT Narrative: Operative Date/Time/Diagnoses Date of procedure: 07/19/22 Time of procedure: 12:00 Pre-op diagnosis: 1. L3-4, L4-5, L5-S1 spinal stenosis with neurogenic claudication 2. L3-4, L4-5 spondylolisthesis ? Post-op diagnosis: same Procedure & Clinicians Procedure: 1. L3-4, L4-5, L5-S1 Postero-lateral and posterior interbody fusion 2. L3-4, L4-5, L5-S1 interbody cage placement. 3. L3-4, L4-5, L5-S1 decompressive laminectomy with bilateral facetecomies 4. L3-4, L4-5, L5-S1 Posterior segmental instrumentation 5. [place] of bone marrow from iliac crest 6. Utilization of microsurgical technique and operating microscope 7. Utilization of microsurgical technique and operating microscope Same procedure as scheduled: Yes Indications: Patient has been having chronic back pain and worsening lumbar radiculopathy and symptoms of neurogenic claudication. Patient failed multiple conservative management with worsening pain weakness and numbness in her lower extremity.? Patient has been having difficulty performing activity of daily living.? After discussing risks benefits of treatment options, patient elected proceed with surgery. Surgeon: Kinsey Gudino Pmo Project Manager: Cayla Wild Click Yes if Unassisted: No Anesthesia Type: General Operative Notes Closure Type: primary Specimen(s): none sent Prosthetic devices, grafts, tissues, transplants, or devices: Globus CREO MIS screws, Rise cages Applied: catheter Estimated Blood Loss (mL): 150 Blood products transfused: none Discharge Providers Provider Date of admission: 07/19/22 09:13 Discharge Date: 07/21/22 Primary care physician: Lani Ley MD Consults: 07/19/22 18:46 Consult to Occupational Therapy Evaluate & Treat Comment: Physician Instructions: Evaluate and treat Consult to Physical Therapy Evaluate & Treat Comment: Physician Instructions: Evaluate and Treat Discharge provider: Cayla Wild PA-C Summary Hospital Course Discharge Diagnosis: Spinal stenosis w/ neurogenic claudication and spondylolisthesis, s/p lumbar fusion Hospital Course: Ms Figueroa's hospital course was remarkable for poor pain control postoperatively. She complained of pain in her low back, denied pain in her legs. On review of her MAR, it appeared that she was not receiving oral pain medication on a consistent basis, and medication orders were changed from PRN to scheduled in the hopes of providing better pain control. She wanted to discharge on POD# 2 if her pain was controlled on oral medication. She is incontinent of urine at baseline d/t cystocele. She was tolerating PO without difficulty. She was evaluated by PT throughout her stay and felt to be appropriate for discharge home with home health. Exam Vital Signs (past 8 hours): - 07/21/22 05:33 Temperature 96.9 F L Pulse Rate 76 Respiratory Rate 16 Blood Pressure 135/65 Pulse Oximetry 93 Oxygen Flow Rate 0 Oxygen Delivery Method Room Air Oxygen Flow Rate 0 Narrative Exam Narrative: 5/5 strength in hip flexors, quadriceps, hamstrings, DF, PF, EHL bilaterally. Sensation to light touch intact throughout BLE. Calves soft, compressible, nontender and without palpable cords or masses. Dressing placed intraoperatively w/ some old bloody drainage, otherwise intact. Objective Labs Result Diagrams: 07/20/22 05:58 [facility] Medical History Anxiety Arthritis Asthma COPD (chronic obstructive pulmonary disease) Depression Easy bruisability Foot fracture, right (~2011) Hammertoe of right foot (~2011) HTN (hypertension) Hypothyroidism Incontinence of urine Numbness and tingling in left hand Pneumonia Prolapsed bladder Uterine cancer Surgical History History of bladder suspension procedure History of partial hysterectomy Hx of appendectomy Hx of bilateral cataract extraction Hx of cholecystectomy Hx of tonsillectomy Hx of tubal ligation Status post cervical spinal fusion (10/06/19) Social History household members: none Smoking Status: Former smoker alcohol intake: former Discharge Assessment & Plan Assessment and Plan Assessment: Spinal stenosis w/ neurogenic claudication and spondylolisthesis, s/p lumbar fusion Plan of Treatment: Discharge home when pain well-controlled with oral medication only. Discharge Plan Discharge Plan Patient Disposition: Home Health Service Transfer to: [facility] Discharge orders & Medications Prescriptions: New docusate sodium 100 mg Capsule 100 mg PO BID PRN (Reason: constipation) Qty: 60 2RF hydrocodone-acetaminophen 10-325 mg Tablet 1 tab PO Q4HR PRN (Reason: pain, moderate to severe) Qty: 60 0RF hydroxyzine pamoate 25 mg Capsule 25 mg PO Q4HR PRN (Reason: muscle spasm) Qty: 120 0RF Continued gabapentin 300 mg Capsule 300 mg PO DAILY fluticasone propion-salmeterol [Advair Diskus] 250-50 mcg/dose Blister With Device 1 inh INHALATION BID levothyroxine 75 mcg Tablet 75 mcg PO DAILY triamterene-hydrochlorothiazid 37.5-25 mg Tablet 1 tab PO QAM verapamil 240 mg Tablet Extended Release 240 mg PO DAILY alprazolam 0.5 mg Tablet 0.5 mg PO Q8H PRN (Reason: Anxiety) albuterol sulfate 90 mcg/actuation Hfa Aerosol Inhaler 1 puff INHALATION QID PRN (Reason: Shortness Of Breath) Discontinued acetaminophen 650 mg Tablet Extended Release 1,300 mg PO BEDTIME Follow up/Referrals: Kinsey Gudino MD [Physician] - As previously scheduled (Follow up with Dr Gudino on 08/04/2022 @ 2:30 pm at [facility] in [place].) Lani Ley MD [Primary Care Provider] - Diet/Activity/Treatments Diet: Diet as Tolerated Activity: No deep bending or twisting at the waist. No lifting more than 10 pounds. Cold/Heat Therapy: Heating pad to back as needed for pain. Skin/Wound/Dressing Care Report to your healthcare provider any signs of infection, such as:: chills, fever, night sweats, unusual drainage and unusual redness Dressing: May shower; keep dressing as dry as possible. If dressing gets wet inside, may remove and replace with clean, dry gauze. No bathing or otherwise soaking incisions. Do not put any creams, lotions, or ointments on incisions. Visit Report/Discharge Packet Instructions: DI for Prescription Opioid Use, DI for Transforaminal Lumbar Interbody Fusion Stand Alone Forms: Surgery Discharge Discharge Data Primary Care Provider: Lani Ley
[2022-07-21 07:41] VITALS: BP 139/60; PULSE 82; RESP 16; TEMP 36.3; O2SAT 96
[2022-07-21] MEDS: BUDESONIDE 0.5 MG/2 ML NEB INH (07:52)
[2022-07-21] MEDS: hydrOXYzine pamoate 25 MG CAPSULE PO ×3 (07:52→13:15)
[2022-07-21] MEDS: VERAPAMIL SR 120 MG TABLET 240 MG PO (08:30)
[2022-07-21] MEDS: GABAPENTIN 300 MG CAPSULE PO (08:31)
[2022-07-21] MEDS: DOCUSATE 100 MG CAPSULE PO (08:31)
[2022-07-21] MEDS: TRIAMTERENE/HCTZ 37.5/25 CAPSULE 1 CAP PO (08:41)
[2022-07-21] MEDS: LEVOTHYROXINE 75 MCG TABLET PO (08:54)
[2022-07-21] MEDS: ALPRAZolam 0.5 MG TABLET PO (08:55)
--- NOTE | 2022-07-21 10:37 | PT.IPTN ---
Current Diagnoses Cauda equina syndrome (07/19/22) Spinal stenosis, lumbar region with neurogenic claudication (07/19/22) Ankylosing hyperostosis [[place]], lumbar region (07/19/22) Arthrodesis status (07/19/22) Surgery Performed Operation Date: 07/19/22 11:00 Actual Procedures p L3-4, L4-5, L5-S1 TLIF w. posterior instrumentation-Robot - Kinsey Gudino MD Physical Therapy Treatment Note M2 PT-IP Current Condition Start: 07/20/22 16:32 Freq: NEEDED Status: Active Protocol: Document 07/20/22 14:25 AB (Rec: 07/20/22 16:45 AB [id number]) Physical Therapy Current Condition Current Condition Evaluation Date 07/20/22 Treatment Diagnosis s/p L3-4, L4-5, L5S1 TLIF; difficulty in walking Onset Date 07/19/22 M3 PT-IP Subjective Start: 07/20/22 16:32 Freq: NEEDED Status: Active Protocol: Document 07/21/22 10:37 AB (Rec: 07/21/22 12:29 AB [email or web address]) Subjective Physical Therapy Visit Type Type Treatment Note Visit Start Time 10:37 Visit Stop Time 12:02 Total Visit Minutes 41 Notes split visits: 1037 to 1057 and 1141 to 1202 Number of PHILOSOPHY LECTURER Visits 0 Physical Therapy Visit Comments Patient Comments agreeable to do PT Therapy Pain Assessment Pain When Pain Assessed At Rest Location lower back Scale Used pain scale not stated Pain Management Techniques Distraction,Elevation, Modification of Treatment,Re- positioning,Timing of Activity with Medications M4 PT-IP Mobility and Gait Start: 07/20/22 16:32 Freq: NEEDED Status: Active Protocol: Document 07/21/22 10:37 AB (Rec: 07/21/22 12:29 AB [id number]) PT-Bed Mobility Assessment Rolling Type of Rolling Log Rolling Level of Assist Standby Assistance Supine to Sit Supine to Sit Standby Assistance Sit to Supine Sit to Supine Moderate Assistance PT-Transfer Assessment Sit to and From Stand Sit to and from Stand Minimal Assistance,1 Person Assistance,Use of Upper Extremities Equipment Transfer Assistive Device Gait Belt,Front Wheeled Walker Orthotic/Prosthetic Devices or Brace: No Transfers Transfer Destination Bed,Chair,Toilet Transfer Technique ambulated Transfer Ability Level of Assist Minimal Assistance,1 Person Assistance,Use of Upper Extremities Comments Mobility Comments son in room for caregiver training but pt stated that she is wet and needs to be changed first and does not want to son be in the room. pt completed supine to sit log roll SBA with increase time needed to complete task. (+) posterior LOB with supine to sit needing min A for support and cues for proper positioning. pt completed sit to stand min A and cues and ambulated to the toilet using FWW min A. continues to have a narrow DEVIKA and increase L knee flexion. cued for steadiness and quads activation. OT took over. checked back on pt for caregiver training. educated son on pt's back precautions, log roll bed mobility and how to use safety belt and how to assist pt. son was able to put safety belt on pt and assisted pt with sit to stand and ambulated pt to EOB using FWW min A. pt completed sit to supine with assist from son with elevating LE up to bed and for positioning in bed. pt completed supine to sit SBA . son assisted pt back to chair using FWW min A. OT took over to continue further caregiver training with son and pt. Gait Assessment Gait Gait Assistance Required: Minimum Assistance Distance (Feet) 20 Able to Maintain Weight Bearing Status Yes During Gait Assistive Devices Assistive Device Gait Belt,Front Wheeled Walker Orthotic/Prosthetic Devices or Brace: No Gait Deviations General Gait Pattern Antalgic,Decreased Stride Length,Decreased Feet Clearance,Step-to Gait Factors Limiting Gait Function Factors Limiting Gait Function Decreased Activity Tolerance, Decreased Strength,Limited Range of Motion,Pain,Poor Balance,Poor Safety Awareness M5 PT-IP Objective Assessments Start: 07/20/22 16:32 Freq: NEEDED Status: Active Protocol: Document 07/20/22 14:25 AB (Rec: 07/20/22 16:45 AB [id number]) Orientation Orientation/Cognition Level of Alertness Alert Orientation Name Language Function Ability No Deficits Noted Safety Awareness Decreased Safety Awareness Memory Description Short Term Impaired Comments with confusion Gross Range of Motion Lower Extremity ROM Assessment Within Functional Limits Strength Lower Extremity Strength Assessment Bilaterally Impaired Hip 3+/5 Knee 4-/5 Sensation Assessment Sensation Gross Sensation WNL Muscle Tone Muscle Tone WNL Yes M6 PT-IP Treatment Start: 07/20/22 16:32 Freq: NEEDED Status: Active Protocol: Document 07/21/22 10:37 AB (Rec: 07/21/22 12:29 AB [email or web address]) Physical Therapy Treatment Education Education Provided Precautions,Safety M7 PT-IP Assessment and Plan Start: 07/20/22 16:32 Freq: NEEDED Status: Active Protocol: Document 07/21/22 10:37 AB (Rec: 07/21/22 12:29 AB [id number]) PT Summary Assessment and Plan Potential Rehabilitation Potential Fair Summary Impairments Pain,ROM,Strength,Balance, Coordination,Sensation,Tone, Cognition,Bed Mobility, Transfers,Gait,Activity Tolerance Progress Towards Goals Slow Progress due to Pain,Slow Progress due to Activity Tolerance,Slow Progress - Other Assessment Summary caregiver training conducted and son was able to assist pt with bed mobility, transfers and ambulation using FWW. pt plans to home. Per OT, son agreeable to provide pt with more assistance even with toileting needs. Goals Bed Mobility Goal Independent Transfer Goal Independent,Front Wheeled Walker Gait Goal Independent,Front Wheel Walker Gait Distance 150 Days to Meet Goals 5 Frequency of Treatment Frequency Of Treatment Twice a Day Treatment Plan Physical Therapy Treatment Plan Bed Mobility Training,Transfer Training,Gait Training, Therapeutic Exercise,Balance Retraining,Post Op Education, Discharge Planning,Hot or Cold Pack,Neuromuscular Re-ed, Coordination Retraining,Manual Therapy Precautions Lumbar Precautions Log Roll,No Twisting,Limit Bending,Lifting Restriction of 10 lbs,Gait Belt above Incisional Area Recommendations To Nursing Amount of Assist Needed 1 Person Assist Discharge Recommendations PT Discharge Recommendations Home with 24/ Assist Available,Home Health Transportation Needs at Discharge Private Vehicle
--- NOTE | 2022-07-21 12:18 | OT.IP.TRT ---
Current Diagnoses Cauda equina syndrome (07/19/22) Spinal stenosis, lumbar region with neurogenic claudication (07/19/22) Ankylosing hyperostosis [[place]], lumbar region (07/19/22) Arthrodesis status (07/19/22) Surgery Performed Operation Date: 07/19/22 11:00 Actual Procedures p L3-4, L4-5, L5-S1 TLIF w. posterior instrumentation-Robot - Kinsey Gudino MD Occupational Therapy Treatment Note M2 OT-IP Current Condition Start: 07/20/22 15:55 Freq: Status: Active Protocol: Document 07/20/22 15:55 [facility] (Rec: 07/20/22 16:25 [facility] [id number]) Occupational Therapy Current Condition Current Condition Evaluation Date 07/20/22 Treatment Diagnosis S/p L3-4, l4-5,L5-S1 TLIF Diagnosis Onset Date 07/19/22 Post Operative Precautions Lumbar Precautions Log Roll,No Twisting,Limit Bending,Lifting Restriction of 10 lbs,Gait Belt above Incisional Area M3 OT- IP Subjective and Pain Start: 07/20/22 15:55 Freq: Status: Active Protocol: Document 07/21/22 12:42 [facility] (Rec: 07/21/22 13:11 [facility] [id number]) OT- Subjective Occupational Therapy Visit Type Type Treatment Note Visit Start Time 10:44 Visit Stop Time 12:18 Total Visit Minutes 77 Occupational Therapy Visit Comments Patient Comments Pt's son able to participate in caregiver training for ADL and mobility needs today. Patient/Caregiver Goals To go home. OT Pain Assessment Pain When Pain Assessed During Mobility Pain Present Pain Present Pain Reported M4 OT- IP ADL's Start: 07/20/22 15:55 Freq: Status: Active Protocol: Document 07/21/22 12:42 [facility] (Rec: 07/21/22 13:11 [facility] [id number]) OT CPD-Hiyj-Dihrbik Comments OT Self-Feeding Comments Not at meal time. OT ADL-Grooming Comments OT Grooming Comments Not performed. OT ADL-Dressing General Eval Lower Body Dressing Ability Moderate Assistance Areas Needing Assistance Retrieving/Set-up of Clothing, Bra,Underpants/Brief,Pants/ Shorts,Socks Comments OT Dressing Comments Pt able to use development coach and sock aid but still needing step by step instructions as pt having trouble to sequence through safety steps and needing assist. Pt needing assist to help pull up her pants up to the knees and up over her hips as she tires. Pt 's son able to assist pt with good safety and demonstration. OT ADL-Toileting General Evaluation Toileting Ability Minimal Assistance Areas Needing Assistance Manage Clothing,Perform Perineal Hygiene Comments OT Toileting Comments Pt's son able to assist with all needs for toileting needs with good safety and demonstration. Suggested placing the BSC over the toilet for increased safety and ease to stand up. Emphasized for pt to call her son to assist and that her son to be present during the toileting needs as pt can be impulsive and is a high fall risk at this time. OT ADL-Bathing Comments OT Bathing Comments Pt not wanting to shower and states to have her girlfriends assist her. M5 OT- IP IADL's Start: 07/20/22 15:55 Freq: Status: Active Protocol: Document 07/20/22 15:55 [facility] (Rec: 07/20/22 16:25 [facility] [id number]) OT-Instrumental Activities of Daily Living Home Safety Awareness Home Safety Comments Pt a bit groggy and not thinking well due to medications and would be best for her son to be there to assist with all her needs of ADL's , IADL's and mobility needs. M6 OT- IP Functional Cognition Start: 07/20/22 15:55 Freq: Status: Active Protocol: Document 07/21/22 12:42 [facility] (Rec: 07/21/22 13:11 [facility] [id number]) Cognitive Factors Limiting Selfcare Function Cognitive Ability Level of Alertness Alert,Confusional State Patient Orientation Name Attention Span Ability Capable of Focused Attention, Capable of Sustained Attention Ability to Follow Commands Able to Follow One Step Commands with Increased Time, Able to Follow One Step Commands with Repetition Memory Description Short Term Impaired Safety Awareness Decreased Recall of Precautions,Decreased Ability to Apply Precautions, Underestimates Need for Assistance Cognitive Comments Cognitive Assessment Comments Pt still needing simple commands to follow and highly distracted and needing cues to focus on one thing at a time. M7 OT- IP Mobility and Balance Start: 07/20/22 15:55 Freq: Status: Active Protocol: Document 07/21/22 12:42 [facility] (Rec: 07/21/22 13:11 [facility] [id number]) OT-Transfer Assessment Sit to and From Stand Sit to and from Stand Minimal Assistance,Moderate Assistance Transfers Transfer Ability Minimal Assistance Technique Transfer Destination Bed,Chair,Toilet Transfer Technique Stand Step Pivot Devices Transfer Assistive Devices Gait Belt,Front Wheeled Walker OT- Balance Assessment Sitting Balance and Reactions Static Sitting Balance Ability Good Dynamic Sitting Balance Ability Fair Standing Balance and Reactions Static Standing Balance Ability Poor Dynamic Standing Balance Ability Poor M8 OT- IP Objective Assessments Start: 07/20/22 15:55 Freq: Status: Active Protocol: Document 07/20/22 15:55 [facility] (Rec: 07/20/22 16:25 [facility] [id number]) OT Gross Range of Motion Upper Extremity Range of Motion Assessment Within Functional Limits OT Strength Upper Extremity Strength Assessment Within Functional Limits OT-Muscle Tone Assessment Muscle Tone WNL Yes M9 OT- IP Assessment and Plan Start: 07/20/22 15:55 Freq: Status: Active Protocol: Document 07/21/22 12:42 [facility] (Rec: 07/21/22 13:11 [facility] [id number]) OT Summary Assessment and Plan Potential Rehabilitation Potential Good Analytic Complexity at Evaluation Low Summary OT Impairments Pain,Balance,Functional Mobility,Grooming,Dressing, Toileting,Bathing,Toilet Transfers,Shower Transfers, Activity Tolerance Progress Towards Goals Progressing Toward Goals,Slow Progress due to Activity Tolerance,Slow Progress due to Cognition Assessment Summary Pt's son present for caregiver training for dressing and toileting needs as his mom has agreed that her son will have to assist her as initially not wanting her son to assist with her hygiene needs. Pt's son able to demonstrate good safety to assist pt for all mobility, dressing , and toileting needs. Pt to go home today with her son to assist 24/7 and home health. Goals Grooming Goal Independent Dressing Goal Minimal Assistance Toileting Goal Standby Assistance Bathing Goal Minimal Assistance Toilet Transfer Goal Standby Assistance Shower Transfer Goal Contact Guard Assistance Days to Meet Goals 14 Frequency of Treatment Frequency Of Treatment Once a Day Treatment Plan OT Treatment Plan ADL Training,Functional Cognition Training,Functional Mobility,Patient/Family Education,Discharge Planning Discharge Recommendations OT Discharge Recommendations Home with 24/7 Assist Available,Home Health Home Equipment Needs FWW, sock aid Transportation Needs at Discharge Private Vehicle
--- NOTE | 2022-07-21 14:46 | CM.DPNOTE ---
DC Note DC home w/son Christopher today. Pl[facility] call to [facility] ; start of care scheduled 11.10, this is the only spot available and [facility] the only [facility] in this region that accepts [employer] [facility] Faxed completed HH order, [facility] and DC Summary to [facility] Plan: DC home w/family to assist [facility], via pov JW
--- NOTE | 2022-07-21 14:52 | PC.NURSE ---
Pt is A&OX3, VSS, afebrile. Initially reports difficult night with pain being elevated. PA at bedside changing schedule of pain medications. Pt begins to have better pain control and is able to participate with therapy and dressing. Pt reports pain better controlled with PRN and scheduled medications down to 5/10 and is eager to discharge home today. Patient's son at bedside present for caregiver training and per PT he acknowledges understanding of being with patient under constant supervision. Dressing to lower back is changed, noted to have old dried blood. fina intact, no swelling but significant purple bruising around incisions. She is able to transfer to [facility] with x1 assist for discharge home. Both patient and son verbalize understanding of discharge medications, activity, site care, s/sx of infection/complications as well as follow up care. She is escorted by RN via w/ to private vehicle with her son for discharge home with all of her belongings this afternoon at approximately 1420.
== END 2022-07-21 14:20 | disposition home health service (06) | DRG 454 ==
PROVIDERS: Admitting Provider Orthopaedic Surgery Orthopaedic Surgery of the Spine; PCP Family Medicine; Referring Provider Orthopaedic Surgery Orthopaedic Surgery of the Spine; Visit Provider Orthopaedic Surgery Orthopaedic Surgery of the Spine
PROC: 0SG10AJ Fusion of 2 or more Lumbar Vertebral Joints with Interbody Fusion Device, Posterior Approach, Anterior Column, Open Approach (ICD-10-PCS; principal; 2022-07-19 11:00)
DX: M48.07 Spinal stenosis, lumbosacral region (principal); G83.4 Cauda equina syndrome; M48.062 Spinal stenosis, lumbar region with neurogenic claudication; M43.16 Spondylolisthesis, lumbar region; G89.18 Other acute postprocedural pain; N81.10 Cystocele, unspecified; E03.9 Hypothyroidism, unspecified; I10 Essential (primary) hypertension; F41.9 Anxiety disorder, unspecified; J44.9 Chronic obstructive pulmonary disease, unspecified; Z20.822 Contact with and (suspected) exposure to COVID-19; Z87.891 Personal history of nicotine dependence
CPT/HCPCS: 36415; 72100; 76000; 85014; 85018; 87635; 97162; 97165; 97530; 97535; C9803; C1713; C9290; J0171; J0330; J0690; J1100; J1170; J2250; J2405; J2704; J3010; J3410; J7613

== ENCOUNTER 2022-07-24 11:35 | Emergency (ER) | payer OTHER, SELFPAY ==
[2022-07-19 21:06] VITALS: BMI 25.4
[2022-07-24] VITALS (15 sets, daily range): BP systolic 150–202; BP diastolic 60–94; PULSE 75–92; RESP 16; TEMP 36.7; O2SAT 91–96; BMI 25.9
[2022-07-24] MEDS: fentaNYL 25 MCG/PATCH TOP (12:21)
--- NOTE | 2022-07-24 12:33 | ED.BACK ---
HPI - Back Pain/Injury <Alok Plunkett PA-C - Last Filed: 07/24/22 15:05> General Chief Complaint: Back Pain/Injury Stated Complaint: post op t-3, pain, weak, not sleeping Time Seen by Provider: 07/24/22 11:57 Source: patient and family History of Present Illness HPI Narrative: 77-year-old female status post a lumbar spinal fusion on 07/19/2022 presents to the ED for intractable pain. Patient states that her back pain has been about a 9 or 10 since the surgery despite taking hydrocodone. Patient states that she is taking the 2 of the 10-325 hydrocodone every 4 hours, that the medication only provides relief for about 1.5 hours. Patient denies fevers, chills, chest pain, shortness of breath, cough, dysuria, abdominal pain, numbness, tingling, weakness. Patient complains of some left-sided knee pain, which is a chronic issue for her. Patient's son is caring for her status post the surgery, and he states that he is struggling to take care of her now due to lack of sleep. Related Data Home Medications Medication Instructions Recorded Confirmed albuterol sulfate 90 mcg/actuation 1 puff inhalation QID PRN 09/23/19 07/19/22 aerosol inhaler Shortness Of Breath alprazolam 0.5 mg tablet 0.5 mg PO Q8H PRN Anxiety 09/23/19 07/12/22 fluticasone 250 mcg-salmeterol 50 1 inh inhalation BID 09/23/19 07/19/22 mcg/dose blistr powdr for inhalation (Advair Diskus) levothyroxine 75 mcg tablet 75 mcg PO DAILY 09/23/19 07/19/22 triamterene 37.5 1 tab PO QAM 09/23/19 07/19/22 mg-hydrochlorothiazide 25 mg tablet verapamil 240 mg tablet,extended 240 mg PO DAILY 09/23/19 07/12/22 release gabapentin 300 mg capsule 300 mg PO DAILY 07/12/22 07/19/22 Previous Rx's Medication Instructions Recorded docusate sodium 100 mg capsule 100 mg PO BID PRN constipation #60 07/21/22 caps hydrocodone 10 mg-acetaminophen 1 tab PO Q4HR PRN pain, moderate 07/21/22 325 mg tablet to severe #60 tabs hydroxyzine pamoate 25 mg capsule 25 mg PO Q4HR PRN muscle spasm 07/21/22 #120 caps fentanyl 25 mcg/hr transdermal 1 patch transdermal Q72H #5 ea 07/24/22 patch Allergies Allergy/AdvReac Type Severity Reaction Status Date / Time etodolac Allergy Pt unsure Verified 07/24/22 11:53 of reaction metronidazole Allergy Pt does Verified 07/24/22 11:53 not remember reaction Penicillins Allergy Rash Verified 07/24/22 11:53 tramadol Allergy Pt does Verified 07/24/22 11:53 not remember reaction oxycodone AdvReac Severe Terrible Verified 07/24/22 11:53 nightmares Tetracyclines AdvReac Severe I get Verified 07/24/22 11:53 terrible skin problems Review of Systems <Alok Plunkett PA-C - Last Filed: 07/24/22 15:05> Review of Systems ROS Unobtainable: All systems reviewed & are unremarkable except as noted in HPI and below Constitutional Constitutional: Denies chills, Denies fatigue, Denies fever(s), Denies frequent falls, Denies lethargy and Denies weakness Eyes Eyes: Denies change in vision, Denies eye discharge, Denies irritation and Denies loss of vision ENT Ears, Nose, Mouth, and Throat: Denies change in voice, Denies dizziness, Denies neck pain, Denies sore throat and Denies throat swelling Cardiovascular Cardiovascular: Denies chest pain, Denies irregular heart rhythm, Denies lightheadedness, Denies palpitations, Denies dyspnea, Denies dyspnea on exertion and Denies orthopnea Respiratory Respiratory: Denies cough, Denies dyspnea, Denies dyspnea on exertion and Denies wheezing Gastrointestinal Gastrointestinal: Denies abdominal pain, Denies change in bowel habits, Denies diarrhea, Denies nausea and Denies vomiting Genitourinary Genitourinary: Denies hematuria, Denies flank pain, Denies urinary incontinence and Denies urinary urgency Musculoskeletal Musculoskeletal: Reports back pain, Denies muscle weakness, Denies neck pain, Denies numbness and Denies tingling Comments: L knee pain Integumentary/Breasts Skin/Breast: Denies pruritus, Denies erythema, Denies rash and Denies wounds Neurologic Neurologic: Denies behavioral changes, Denies confusion, Denies dizziness, Denies frequent falls, Denies loss of vision, Denies numbness, Denies tingling and Denies weakness Psychiatric Psychiatric: Denies anxiety, Denies behavioral changes, Denies confusion, Denies depression, Denies homicidal ideation and Denies suicidal ideation Endocrine Endocrine: Denies fatigue, Denies flushing and Denies palpitations Hematologic/Lymphatic Hematologic/Lymphatic: Denies easy bruising Allergic/Immunologic Allergic/Immunologic: Denies urticaria, Denies throat swelling and Denies wheezing Patient History <Alok Plunkett PA-C - Last Filed: 07/24/22 15:05> Medical History Anxiety Arthritis Asthma COPD (chronic obstructive pulmonary disease) Depression Easy bruisability Foot fracture, right (~2011) Hammertoe of right foot (~2011) HTN (hypertension) Hypothyroidism Incontinence of urine Numbness and tingling in left hand Pneumonia Prolapsed bladder Uterine cancer Surgical History History of bladder suspension procedure History of partial hysterectomy Hx of appendectomy Hx of bilateral cataract extraction Hx of cholecystectomy Hx of tonsillectomy Hx of tubal ligation Status post cervical spinal fusion (10/06/19) Social History household members: none Smoking Status: Former smoker alcohol intake: former Smoking Status: Former smoker Substance Use Type: does not use Exam <Alok Plunkett PA-C - Last Filed: 07/24/22 15:05> Narrative Exam Narrative: Const General:?cooperative, healthy appearing and comfortable [facility] Head:?normal to inspection Ears:?hearing grossly normal bilaterally Nose:?external nose normal Face and sinus:?normal facial exam and sinuses nontender Mouth:?oral mucosae normal Throat:?posterior oropharynx normal Eyes General:?appearance normal, both eyes and all related structures Neck Neck:?normal visual inspection and no lymphadenopathy noted Resp Effort & Inspection:?normal respiratory effort Auscultation:?clear to auscultation bilaterally Cardio Rate:?regular rate Rhythm:?regular rhythm Integumentary Surgical incisions appear to be healing well without overt signs of infection including erythema, warmth, swelling, discharge. Patient is tender to palpation of the surgical incisions as well as the generalized lower back. There appears to be extensive bruising surrounding the surgical incision. Neuro General:?patient alert, patient awake and patient oriented x3 Initial Vital Signs Initial Vital Signs: Vital Signs Pulse Rate 92 H 07/24/22 11:46 Blood Pressure 202/94 H 07/24/22 11:46 Pulse Oximetry 93 07/24/22 11:46 <Marty Thompson DO - Last Filed: 07/24/22 16:13> Initial Vital Signs Initial Vital Signs: Vital Signs Pulse Rate 92 H 07/24/22 11:46 Blood Pressure 202/94 H 07/24/22 11:46 Pulse Oximetry 93 07/24/22 11:46 Course <Alok Plunkett PA-C - Last Filed: 07/24/22 15:05> Orders Ordered: ED Orders 07/24/22 12:46 XR lumbar spine min 4V Stat 07/24/22 13:41 Consult to [facility] [employer] - Office Clinician Stat 07/24/22 14:04 Consult to Physical Therapy Evaluate & Treat 07/24/22 16:09 Consult to Home Health Stat Discontinued Medications Hydrocodone Bitart/Acetaminophen (Hydrocodone/Acet 10/325 Tablet) 1 tab PO NOW ONE Stop: 07/24/22 13:44 Last Admin: 07/24/22 13:54 Dose: 1 tab Documented By: MARS Fentanyl (Fentanyl 25 Mcg/Patch) 25 mcg TOP NOW ONE Stop: 07/24/22 12:10 Last Admin: 07/24/22 12:21 Dose: 25 mcg Documented By: MARS Hydromorphone HCl (Hydromorphone 1 Mg Inj) 1 mg IV NOW ONE Stop: 07/24/22 14:32 Last Admin: 07/24/22 14:36 Dose: 1 mg Documented By: MARS Oxycodone/Acetaminophen (Oxycodone/Acetaminophen 5/325 Tablet) 1 tab PO NOW ONE Stop: 07/24/22 13:05 Last Admin: 07/24/22 13:51 Dose: Not Given Documented By: MARS Vital Signs Vital signs: Vital Signs - 8 hr 07/24/22 11:47 07/24/22 11:46 07/24/22 11:46 Temperature 98.0 F Pulse Rate 91 H 92 H Respiratory Rate 16 Blood Pressure 202/94 H 202/94 H Pulse Oximetry 93 93 Oxygen Delivery Method Room Air 07/24/22 12:00 07/24/22 12:00 07/24/22 12:30 Temperature Pulse Rate 83 Respiratory Rate Blood Pressure 195/74 H 169/83 H Pulse Oximetry 91 Oxygen Delivery Method 07/24/22 12:30 07/24/22 13:19 07/24/22 13:21 Temperature Pulse Rate 75 81 Respiratory Rate Blood Pressure 166/73 H Pulse Oximetry 94 94 Oxygen Delivery Method 07/24/22 13:21 07/24/22 13:30 07/24/22 13:30 Temperature Pulse Rate 80 82 Respiratory Rate Blood Pressure 183/60 H Pulse Oximetry 94 94 Oxygen Delivery Method 07/24/22 14:00 07/24/22 14:30 07/24/22 14:56 Temperature Pulse Rate 90 85 88 Respiratory Rate Blood Pressure Pulse Oximetry 95 93 94 Oxygen Delivery Method Room Air 07/24/22 14:56 07/24/22 15:00 07/24/22 15:30 Temperature Pulse Rate 88 84 Respiratory Rate Blood Pressure 176/86 H Pulse Oximetry 94 94 Oxygen Delivery Method Room Air 07/24/22 15:34 07/24/22 15:34 Temperature Pulse Rate 83 Respiratory Rate Blood Pressure 177/88 H Pulse Oximetry 93 Oxygen Delivery Method <Marty Thompson, DO - Last Filed: 07/24/22 16:13> Orders Ordered: ED Orders 07/24/22 12:46 XR lumbar spine min 4V Stat 07/24/22 13:41 Consult to [facility] [employer] - Office Clinician Stat 07/24/22 14:04 Consult to Physical Therapy Evaluate & Treat 07/24/22 16:09 Consult to Home Health Stat Discontinued Medications Hydrocodone Bitart/Acetaminophen (Hydrocodone/Acet 10/325 Tablet) 1 tab PO NOW ONE Stop: 07/24/22 13:44 Last Admin: 07/24/22 13:54 Dose: 1 tab Documented By: MARS Fentanyl (Fentanyl 25 Mcg/Patch) 25 mcg TOP NOW ONE Stop: 07/24/22 12:10 Last Admin: 07/24/22 12:21 Dose: 25 mcg Documented By: MARS Hydromorphone HCl (Hydromorphone 1 Mg Inj) 1 mg IV NOW ONE Stop: 07/24/22 14:32 Last Admin: 07/24/22 14:36 Dose: 1 mg Documented By: MARS Oxycodone/Acetaminophen (Oxycodone/Acetaminophen 5/325 Tablet) 1 tab PO NOW ONE Stop: 07/24/22 13:05 Last Admin: 07/24/22 13:51 Dose: Not Given Documented By: MARS Vital Signs Vital signs: Vital Signs - 8 hr 07/24/22 11:47 07/24/22 11:46 07/24/22 11:46 Temperature 98.0 F Pulse Rate 91 H 92 H Respiratory Rate 16 Blood Pressure 202/94 H 202/94 H Pulse Oximetry 93 93 Oxygen Delivery Method Room Air 07/24/22 12:00 07/24/22 12:00 07/24/22 12:30 Temperature Pulse Rate 83 Respiratory Rate Blood Pressure 195/74 H 169/83 H Pulse Oximetry 91 Oxygen Delivery Method 07/24/22 12:30 07/24/22 13:19 07/24/22 13:21 Temperature Pulse Rate 75 81 Respiratory Rate Blood Pressure 166/73 H Pulse Oximetry 94 94 Oxygen Delivery Method 07/24/22 13:21 07/24/22 13:30 07/24/22 13:30 Temperature Pulse Rate 80 82 Respiratory Rate Blood Pressure 183/60 H Pulse Oximetry 94 94 Oxygen Delivery Method 07/24/22 14:00 07/24/22 14:30 07/24/22 14:56 Temperature Pulse Rate 90 85 88 Respiratory Rate Blood Pressure Pulse Oximetry 95 93 94 Oxygen Delivery Method Room Air 07/24/22 14:56 07/24/22 15:00 07/24/22 15:30 Temperature Pulse Rate 88 84 Respiratory Rate Blood Pressure 176/86 H Pulse Oximetry 94 94 Oxygen Delivery Method Room Air 07/24/22 15:34 07/24/22 15:34 Temperature Pulse Rate 83 Respiratory Rate Blood Pressure 177/88 H Pulse Oximetry 93 Oxygen Delivery Method MDM - Back Pain/Injury <Alok Plunkett PA-C - Last Filed: 07/24/22 15:05> Imaging Data X-ray of the lumbar spine: Radiologist's Impression: PROCEDURE:? XR LUMBAR SPINE MIN 4V ? INDICATIONS:? Post op back pain ? TECHNIQUE:? 5 views of the lumbar spine were acquired, including bilateral oblique views. ? ? COMPARISON:? [facility], CR, XR LUMBAR SPINE 2-3V, 07/19/2022, 16:09. ? FINDINGS:? ? Bones:? 5 nonrib-bearing vertebrae are present.? Posterior fusion hardware at L3-S1 is present.? Interbody devices at L3-L4, L4-L5, and L5-S1 are present.? 4 mm of anterolisthesis of L3 on L4.? 6 mm of retrolisthesis of L1 on L2.? Multilevel disc space narrowing and endplate osteophyte formation throughout the thoracolumbar spine.? The pars interarticularis are not well seen.? No vertebral body compression fractures.? No suspicious bony lesions.? ? Soft tissues:? Overlying bowel gas pattern is normal.? No suspicious soft tissue calcifications.? ? IMPRESSION:? 1. Postsurgical sequelae. 2. Multilevel degenerative disc disease. 3. No acute fracture. No osseous lesion. If symptoms and/or clinical suspicion for pathology persist, further assessment with repeat, or advanced imaging (e.g., CT, MRI, or bone scan) may be helpful for further assessment. ? ? Dictated by: Mars Dillon M.D. on 07/24/2022 at 13:21 ? ? Approved by: Mars Dillon M.D. on 07/24/2022 at 13:23 ? MDM Narrative Medical decision making narrative: 77-year-old female status post a lumbar spinal fusion on 07/19/2022 presents to the ED for intractable pain. Will obtain lumbar x-ray. X-ray without acute changes. Will apply fentanyl patch for pain. Patient's pain improved with the fentanyl patch. Patient was also given some Dilaudid. Patient agrees to be discharged home, will continue with the fentanyl patches every [address] Ovalle, her orthopedic surgeon was also consulted, he is in agreement with the plan. Patient is able to sit up unassisted, walked to the commode with minimal help from the nurse. ED return precautions were discussed with patient. Patient verbalized understanding. Discharge Plan Departure Patient Disposition: Home Clinical Impression: Acute back pain Instructions: DI for Low Back Pain Activity Restrictions/Additional Instructions: You were evaluated in the ED today for postoperative lower back pain. Your pain improved with the fentanyl patch and Dilaudid. You may continue to use the fentanyl patch for pain relief. You will change out the fentanyl patch every 3 days. Please do not use multiple patches at the same time. Please follow-up with your orthopedic surgeon Dr. Gudino as scheduled for your postop check. Return to the ED if your symptoms worsen, you experience chest pain, shortness breath. Prescriptions: New fentanyl 25 mcg/hr patch 72 hour 1 patch transdermal Q72H Qty: 5 0RF No Action gabapentin 300 mg Capsule 300 mg PO DAILY docusate sodium 100 mg Capsule 100 mg PO BID PRN (Reason: constipation) Qty: 60 2RF hydrocodone-acetaminophen 10-325 mg Tablet 1 tab PO Q4HR PRN (Reason: pain, moderate to severe) Qty: 60 0RF hydroxyzine pamoate 25 mg Capsule 25 mg PO Q4HR PRN (Reason: muscle spasm) Qty: 120 0RF fluticasone propion-salmeterol [Advair Diskus] 250-50 mcg/dose Blister With Device 1 inh INHALATION BID levothyroxine 75 mcg Tablet 75 mcg PO DAILY triamterene-hydrochlorothiazid 37.5-25 mg Tablet 1 tab PO QAM verapamil 240 mg Tablet Extended Release 240 mg PO DAILY alprazolam 0.5 mg Tablet 0.5 mg PO Q8H PRN (Reason: Anxiety) albuterol sulfate 90 mcg/actuation Hfa Aerosol Inhaler 1 puff INHALATION QID PRN (Reason: Shortness Of Breath) Referrals: Lani Ley MD [Primary Care Provider] - <Marty Thompson, DO - Last Filed: 07/24/22 16:13> Cosign ED Attending Cosignature Attestation: Dr Thompson Co-Sign Statement: I was available for consultation during this patient's emergency department visit. This chart is signed by myself for administrative purposes only. I did not have direct contact with this patient during this visit. They were seen independently by the APC.
--- NOTE | 2022-07-24 12:46 | DI.RAD.S_ITS ---
PROCEDURE: XR LUMBAR SPINE MIN 4V INDICATIONS: Post op back pain TECHNIQUE: 5 views of the lumbar spine were acquired, including bilateral oblique views. COMPARISON: [facility], , XR LUMBAR SPINE 2-3V, 07/19/2022, 16:09. FINDINGS: Bones: 5 nonrib-bearing vertebrae are present. Posterior fusion hardware at L3-S1 is present. Interbody devices at L3-L4, L4-L5, and L5-S1 are present. 4 mm of anterolisthesis of L3 on L4. 6 mm of retrolisthesis of L1 on L2. Multilevel disc space narrowing and endplate osteophyte formation throughout the thoracolumbar spine. The pars interarticularis are not well seen. No vertebral body compression fractures. No suspicious bony lesions. Soft tissues: Overlying bowel gas pattern is normal. No suspicious soft tissue calcifications. IMPRESSION: 1. Postsurgical sequelae. 2. Multilevel degenerative disc disease. 3. No acute fracture. No osseous lesion. If symptoms and/or clinical suspicion for pathology persist, further assessment with repeat, or advanced imaging (e.g., CT, MRI, or bone scan) may be helpful for further assessment. Dictated by: Mars Dillon M.D. on 07/24/2022 at 13:21 Approved by: Mars Dillon M.D. on 07/24/2022 at 13:23
[2022-07-24] MEDS: HYDROCODONE/ACET 10/325 TABLET 1 TAB PO (13:54)
[2022-07-24] MEDS: HYDROMORPHONE 1 MG INJ IV (14:36)
--- NOTE | 2022-07-24 14:52 | CM.SWNOTE ---
Addendum entered by NATIVIDAD Vital 07/24/22 17:02: SW received call from [facility] with the update that a PT will come out to patient's home tomorrow, 07/25. SW inquired if pt was also signed up for RN, OT, and SW and was informed that we would need to add those orders. SW discussed with ED Provider who completed Face to Face. SW faxed orders and face to face to [facility] at [phone]. PT came to bedside to evaluate patient and is recommending home with home health. Pt discharging home with Home Health resources and assistance from her son. NATIVIDAD Vital Original Note: ED SW Note Pt is a 77-year-old female status post a lumbar spinal fusion on 07/19/2022 presents to the ED for intractable pain. Pt has [employer] Medicare advantage and her PCP is Lani Ley. SW consulted to assist with procuring more support at home. SW met pt and her son, Christopher at bedside to discuss. Christopher reports that he came into town from [place] to help the pt post surgery. Christopher reports that pt has only been sleeping 1-2 hours a night and needs significant assistance due to uncontrolled pain. Christopher and pt inquire if SNF placement is possible. SW explains that the ED Provider discussed the case with pt's ortho surgeon and they have not found a reason to admit pt to acute care. At this time, it is unlikely that pt's insurance will provide auth for SNF from ED. Additionally, there are very few local SNFs that accept the covid waiver at this time. Pt reports that with the fentanyl patch, her pain is becoming more bearable. Pt reports that she has friends that may be able to provide assistance at home and that she needs to make some calls. Pt's son Christopher is visibly upset and reports that he feels burnt out and like he is not able to provide additional support at this time. AUBREE explains that our team will determine if pt can safely transfer in and out of bed and if pt is safe to dc home. Pt reports that [facility] is scheduled to come on 07/27/22. Plan: ED Provider is looking into options for discharge with fentanyl patch. SW will reach out to [facility] to see if they are able to start services earlier than 07/27. Pt will make calls to local supports to see if there is anyone available to provide additional assistance at home. NATIVIDAD Vital
--- NOTE | 2022-07-24 16:04 | PT.IIE ---
Surgical History (Last Reviewed 07/24/22 @ 12:57 by Alok Plunkett PA-C) History of bladder suspension procedure History of partial hysterectomy Hx of appendectomy Hx of bilateral cataract extraction Hx of cholecystectomy Hx of tonsillectomy Hx of tubal ligation Status post cervical spinal fusion (10/06/19) Medical History (Last Reviewed 07/24/22 @ 12:57 by Alok Plunkett PA-C) Anxiety Arthritis Asthma COPD (chronic obstructive pulmonary disease) Depression Easy bruisability Foot fracture, right (~2011) Hammertoe of right foot (~2011) HTN (hypertension) Hypothyroidism Incontinence of urine Numbness and tingling in left hand Pneumonia Prolapsed bladder Uterine cancer Physical Therapy Inpatient Evaluation/Re-Eval M1 PT/OT-IP Prior Functional Status Start: 07/24/22 15:13 Freq: Status: Active Protocol: Document 07/24/22 16:04 AW (Rec: 07/24/22 16:51 AW [id number]) Medical Review Prior Functional Status Medical History Reviewed Yes Communication Pt is an effective verbal communicator. Mobility and Gait At baseline, pt tends to cruise furniture or use a 4WW for household mobility. She used a 4WW or SPC outside. She had lumbar surgery on 07/19/22 and has been using a FWW for very limited household mobility since that time. She denies falls. She states her high pile carpet complicates her use of the walker. Activities of Daily Living and IADL's Typically independent but needing assist now. She has not felt safe to get in the shower in over five days. Prior Functional Level (Other details) Pt discharged with [facility] but they were not able to initiate service until 07/27. High pain levels have been limiting her function. She states being in one position too long aggravates her pain. Social History Household Members none Living Arrangements House Number of Floors (Floors) One Floor Number of Stairs To Enter/Railing? Level entrance Home Environment High Toilet,Walk in Shower Home Equipment Front Wheel Walker,Four Wheel Walker,Straight Cane,Shower Seat with Backrest,Hand Held Shower,Tile Sorter,Bed Rails,Grab Bars Near Toilet,Grab Bars In Shower Additional Social History Comment Pt's son, Christopher, has been staying with her since surgery and reports he has slept a total of 9 hours in the past 4 days due to pt's needs. M2 PT-IP Current Condition Start: 07/24/22 15:13 Freq: Status: Active Protocol: Document 07/24/22 16:04 AW (Rec: 07/24/22 16:51 AW [id number]) Physical Therapy Current Condition Current Condition Evaluation Date 07/24/22 Treatment Diagnosis back pain s/p lumbar surgery; impaired mobility and gait Onset Date M3 PT-IP Subjective Start: 07/24/22 15:13 Freq: Status: Active Protocol: Document 07/24/22 16:04 AW (Rec: 07/24/22 16:51 AW [id number]) Subjective Physical Therapy Visit Type Type Initial Evaluation Visit Start Time 15:35 Visit Stop Time 16:04 Total Visit Minutes 29 Notes Pt's son is present throughout evaluation and contributes to history. Pt seen 1 hour after IV dilaudid. Physical Therapy Visit Comments Patient Comments I'm scared to move by myself. Therapy Pain Assessment Pain When Pain Assessed During Mobility Pain Present Pain Present Pain Reported Location lower back Scale Used 6.5 (down from 9.5 before IV dilaudid) Pain Behaviors Facial Grimacing,Guarding, Wincing Pain Management Techniques Distraction,Re-positioning, Timing of Activity with Medications M4 PT-IP Mobility and Gait Start: 07/24/22 15:13 Freq: Status: Active Protocol: Document 07/24/22 16:04 AW (Rec: 07/24/22 16:51 AW [id number]) PT-Bed Mobility Assessment Rolling Type of Rolling Log Rolling,Roll to Left Level of Assist Minimal Assistance,1 Person Assistance Supine to Sit Supine to Sit Minimal Assistance,1 Person Assistance,Head of Bed Elevated,Bedrails Sit to Supine Sit to Supine Minimal Assistance,1 Person Assistance PT-Transfer Assessment Sit to and From Stand Sit to and from Stand Contact Guard Assistance,1 Person Assistance,Use of Upper Extremities Equipment Transfer Assistive Device Gait Belt,Front Wheeled Walker Orthotic/Prosthetic Devices or Brace: No Transfers Transfer Destination Bed Transfer Technique ambulated with FWW Comments Mobility Comments Pt was lying in bed as PT arrived. BP 177/88 HR 78. She complained of pain with all movements and needed cues to log roll to her left side and min assist to right her trunk. She stood from the tall gurney CGA and was able to shift weight without increase in back pain. She ambulated with FWW 30 feet CGA, reporting great fear of falling but appearing relatively steady. She returned to the [facility] and needed min A to elevate her legs to the bed. CGA and cues for reverse log roll. Pt was able to bridge her hips to scoot laterally. Pt was left with her son remaining in the room. Gait Assessment Gait Gait Assistance Required: Contact Guard Assist Distance (Feet) 30 Assistive Devices Assistive Device Gait Belt,Front Wheeled Walker Orthotic/Prosthetic Devices or Brace: No Gait Deviations General Gait Pattern Antalgic,Decreased Stride Length,Decreased Feet Clearance Factors Limiting Gait Function Factors Limiting Gait Function Decreased Strength,Pain,Poor Balance Comments Gait Comments See mobility comments for details. Pt stated pain did not increase during ambulation . Stair Climbing Assessment Comments Stair Climbing Comments Not assessed. No stairs at home. PT-Balance Assessment Sitting Balance and Reactions Static Sitting Balance Ability Good Dynamic Sitting Balance Ability Good Standing Balance and Reactions Static Standing Balance Ability Fair Dynamic Standing Balance Ability Fair Device Used FWW M5 PT-IP Objective Assessments Start: 07/24/22 15:13 Freq: Status: Active Protocol: Document 07/24/22 16:04 AW (Rec: 07/24/22 16:51 AW [id number]) Orientation Orientation/Cognition Level of Alertness Alert Orientation Name,Day of Week,Place, Situation Language Function Ability No Deficits Noted Safety Awareness Understands Safety Issues Comments Pt presents with heightened anxiety, expressing fear with each phase of movement. Gross Range of Motion Lower Extremity ROM Assessment Within Functional Limits Strength Lower Extremity Strength Assessment Bilaterally Impaired Hip 3+/5 Knee 4/5 Ankle 4/5 Sensation Assessment Sensation Gross Sensation Left LE Impaired Comments Sensation Comments Pt reports intermittent numbness/tingling in LLE. Muscle Tone Muscle Tone WNL Yes M6 PT-IP Treatment Start: 07/24/22 15:13 Freq: Status: Active Protocol: Document 07/24/22 16:04 AW (Rec: 07/24/22 16:51 AW [id number]) Physical Therapy Treatment Education Education Provided Safety Other Treatments Other Treatment Performed Educated pt and her son on contribution of environmental stressors and anxiety to pain experience and encouraged pt to engage in some non- pharmacological pain management such as diaphragmatic breathing or body scans. M7 PT-IP Assessment and Plan Start: 07/24/22 15:13 Freq: Status: Active Protocol: Document 07/24/22 16:04 AW (Rec: 07/24/22 16:51 AW [id number]) PT Summary Assessment and Plan Potential Rehabilitation Potential Fair Status of Condition at Evaluation Evolving Summary Impairments Pain,Strength,Balance, Sensation,Cognition,Bed Mobility,Transfers,Gait, Activity Tolerance Assessment Summary Frances is a 77 yo woman seen for PT evaluation in the ED one week following lumbar surgery. She went home with her son to assist. HH orders were placed but has not yet initiated service. While at ED , ELIGIBILITY ANALYST informed PT HH could start tomorrow. Pt is modified independent with mobility at baseline but has been needing FWW and assist for all mobility since surgery. Her reported pain at ED admit today was 9.5/10 which improved to 6.5/10 after IV dilaudid and fentanyl patch. Pt required CGA to min assist with bed mobility and 30 feet ambulation with FWW. She moved slowly and with a great deal of concern for her safety. She presents with heightened anxiety and reports one of her dogs just before surgery . Anxiety appears to be a significant factor in her pain presentation and pt does not have a good understanding of non-pharmacological pain management strategies. PT attempted to educate pt and her son on diaphragmatic breathing and progressive relaxation techniques for physiologic quieting. Pt's son has been providing all assist and reports 9 hours of sleep in the past 4 days. Pt would benefit from increased caregiver support in the home. PT recommends adding OT, nursing, and bath aid to HH order. With improved pain management, PT believes pt can be safe at home with increased assist. Alternatively, SNF rehab could be considered. Goals Bed Mobility Goal Standby Assistance Transfer Goal Standby Assistance,Front Wheeled Walker Gait Goal Standby Assistance,Front Wheel Walker Gait Distance 150 Frequency of Treatment Frequency Of Treatment Once a Day Treatment Plan Physical Therapy Treatment Plan Bed Mobility Training,Transfer Training,Gait Training, Therapeutic Exercise,Balance Retraining,Post Op Education, Discharge Planning,Hot or Cold Pack,Neuromuscular Re-ed Precautions Lumbar Precautions Log Roll,No Twisting,Limit Bending,Lifting Restriction of 10 lbs,Gait Belt above Incisional Area Recommendations To Nursing Amount of Assist Needed 1 Person Assist Discharge Recommendations PT Discharge Recommendations Home with / Assist Available,Home Health,Home vs SNF Transportation Needs at Discharge Private Vehicle,Wheelchair/ Cabulance
== END 2022-07-24 16:57 | disposition home or self-care (01) ==
PROVIDERS: Emergency Provider Student in an Organized Health Care Education/Training Program; PCP Family Medicine
DX: G89.18 Other acute postprocedural pain (principal); M54.50 Low back pain, unspecified
CPT/HCPCS: 72110; 96374; 97162; 97535; 99284; J1170